=== PATIENT | male | born 1985 | race Caucasian/White ===

== ENCOUNTER → 2017-12-26 09:00 | Outpatient (CLI) | payer OTHER, SELFPAY | PROVIDERS: Family Provider Family Medicine; PCP Family Medicine | DX: Z23 Encounter for immunization (principal) | CPT/HCPCS: 90471; 90686 ==

== ENCOUNTER → 2018-05-07 11:05 | Outpatient (CLI) | payer OTHER, SELFPAY ==
[2018-05-07 11:54] LABS: Add Manual Diff / Slide Review NO; Basophils Absolute Auto 0 /uL (0-100); Basophils Percent Auto 0.4 % (0-2); Eosinophils Absolute Auto 300 /uL (0-450); Eosinophils Percent Auto 5.9 % (2-4); Hematocrit 47.8 % (41-53); Hemoglobin 16.2 g/dL (13.5-17.5); Lymphocytes Absolute Auto 2100 /uL (1100-4500); Lymphocytes Percent Auto 38.3 % (25-40); Mean Corpuscular HGB Conc 33.9 % (30-36); Mean Corpuscular Hemoglobin 31.3 PG (26-34); Mean Corpuscular Volume 92.1 fL (80-100); Monocytes Absolute Auto 400 /uL (0-900); Monocytes Percent Auto 8.2 % (3-14); Neutrophils Absolute Auto 2500 /uL (1500-7000); Neutrophils Percent Auto 47.2 % (50-75); Platelet Count 261 X10^3/uL (150-400); Red Blood Cell Count 5.19 X10^6/uL (4.5-5.9); Red Cell Distribution Width 12.8 % (11.6-14.8); White Blood Cell Count 5.4 X10^3/uL (4.5-11.0)
[2018-05-07 12:16] LABS: Alanine Aminotransferase 43 IU/L (21-72); Albumin 4.8 g/dL (3.5-5.0); Albumin Globulin Ratio 1.5 (1.0-2.8); Alkaline Phosphatase 61 U/L (38-126); Aspartate Aminotransferase 26 IU/L (17-59); BUN Creatinine Ratio 27.5 (6-22); Bilirubin Total 0.8 mg/dL (0.2-1.3); Blood Urea Nitrogen 22 mg/dL (9-20); Calcium 9.5 mg/dL (8.4-10.2); Carbon Dioxide 29 mmol/L (22-32); Chloride 105 mmol/L (98-107); Estimated Glomerular Filt Rate > 60.0 mL/min (>60); Globulin 3.2 g/dL (1.7-4.1); Glucose 95 mg/dL (70-100); HEMOLYSIS < 15 (0-50); Potassium 4.5 mmol/L (3.4-5.1); Sodium 143 mmol/L (137-145)
[2018-05-07 12:49] LABS: Thyroid Stimulating Hormone 1.15 uIU/mL (0.47-4.68)
== END ==
PROVIDERS: PCP Family Medicine; Visit Provider Family Medicine
DX: G44.209 Tension-type headache, unspecified, not intractable (principal)
CPT/HCPCS: 36415; 80053; 84443; 85025

== ENCOUNTER 2018-05-13 15:54 | Emergency (ER) | payer OTHER, SELFPAY ==
[2018-05-13 16:08] VITALS: BP 128/98; PULSE 85; RESP 18; TEMP 37.1; O2SAT 100; BMI 26.4
[2018-05-13 16:30] VITALS: BP 131/91; PULSE 76; RESP 16; O2SAT 97
--- NOTE | 2018-05-13 16:33 | ED.DIZZY ---
HPI - Dizziness <RADHA London - Last Filed: 05/13/18 21:57> General Chief Complaint: Dizziness Stated Complaint: SUDDEN VERTIGO FEELS LIKE FAINTING Time Seen by Provider: 05/13/18 16:26 Source: patient Mode of arrival: ambulatory Limitations: no limitations History of Present Illness HPI Narrative: 33-year-old male with history of migraines and is a former smoker here for complaint of dizziness that happened just prior to exam. He states that he was out at triage and felt immediate dizziness randomly. He describes the dizziness as lightheadedness. He denies it as a vertigo. He denies any headache at this current time. He denies any chest pain or shortness of breath. No fevers or chills. Does report having decreased amount of fluid intake over the past 24 hr. He denies any nausea or vomiting. No abdominal pain. He reports that at time exam his symptoms were improved. He denies any syncope. No stressors or relievers of his discomfort. He does report being on 2 new medications for migraines diltiazem and also indomethacin that he started few days ago. MD complaint: dizziness Related Data Home Medications Medication Instructions Recorded Confirmed acetaminophen [Tylenol Extra 500 mg PO Q6HP PRN #0 02/05/16 05/13/18 Strength] Nebulizer: Home Unit 1 ea MISCELLANEOUS DIRECTED 05/13/18 05/13/18 Tums 1 tab PO PRN PRN 05/13/18 05/13/18 albuterol sulfate 3 ml INH Q4HP PRN 05/13/18 05/13/18 albuterol sulfate [ProAir HFA] 2 puff INHALATION Q4H PRN 05/13/18 05/13/18 cetirizine 10 mg PO DAILY 05/13/18 05/13/18 Previous Rx's Medication Instructions Recorded nystatin 100,000 unit/gram topical See Rx Instructions TOPICAL 03/31/18 powder .COMPLEX #60 gram fluticasone 232 mcg-salmeterol 14 1 puff INHALATION BID #1 ea 04/23/18 mcg/actuation breath activated powdr diltiazem CD 120 mg 120 mg PO DAILY #30 cap 05/07/18 capsule,extended release 24 hr indomethacin 50 mg capsule 50 mg PO BID PRN #30 cap 05/07/18 nitrofurantoin monohyd/m-cryst 100 mg PO Q12H #14 cap 05/13/18 [Macrobid] Allergies Allergy/AdvReac Type Severity Reaction Status Date / Time No Known Drug Allergies Allergy Verified 05/13/18 16:13 Review of Systems <RADHA London - Last Filed: 05/13/18 21:57> Constitutional Denies chills, Denies fatigue, Denies fever(s), Denies lethargy and Denies weakness Eyes Denies change in vision, Denies eye discharge, Denies irritation and Denies loss of vision ENT Ears, Nose, Mouth, and Throat: Denies change in voice, Denies neck pain and Denies sore throat Cardiovascular Denies dyspnea and Denies dyspnea on exertion Comments: Dizziness Respiratory Denies cough, Denies dyspnea, Denies dyspnea on exertion and Denies wheezing Gastrointestinal Gastrointestinal: Denies abdominal pain, Denies change in bowel habits, Denies diarrhea, Denies nausea and Denies vomiting Genitourinary Denies hematuria, Denies flank pain, Denies urinary incontinence and Denies urinary urgency Musculoskeletal Denies neck pain Integumentary/Breasts Denies pruritus, Denies erythema, Denies rash and Denies wounds Neurologic Denies loss of vision and Denies weakness Endocrine Denies fatigue and Denies flushing Hematologic/Lymphatic Denies easy bruising Allergic/Immunologic Denies wheezing PFSH <RADHA London - Last Filed: 05/13/18 21:57> Medical History ADHD (Chronic ~2011) Anxiety (Chronic ~2009) Depression (Chronic ~2009) Hay fever with asthma (Chronic) Kidney stones (Chronic ~2011) Low testosterone (Chronic ~2011) PVCs (premature ventricular contractions) (Chronic ~2015) Pulmonary embolism (Chronic ~07/2011) Recurrent sinusitis (Chronic ~2014) Rhabdomyolysis (Chronic ~2006) Substance abuse (Chronic ~2009) Vertigo (Chronic ~2009) Acne (Resolved) Surgical History Anesthesia (Resolved) Fracture of radius and ulna (Resolved ~1997) History of third molar tooth extraction (~2001) Family History Brother Age: 29 Seizures Mental health problem Manic depression Father Age: 66 Pinched nerve Mother Age: 57 Hypertension Smoker Mental health problem Diabetes mellitus Alcoholic Sister Age: 33 Cancer Depression Grandmother No problems noted. Social History Smoking Status: Former smoker alcohol intake: former substance use type: does not use Social History Smoking Status: Former smoker alcohol intake: former substance use type: does not use Exam <RADHA London - Last Filed: 05/13/18 21:57> Initial Vital Signs Initial Vital Signs: Vital Signs Temperature 98.7 F 05/13/18 16:08 Pulse Rate 85 05/13/18 16:08 Respiratory Rate 18 05/13/18 16:08 Blood Pressure 128/98 H 05/13/18 16:08 Pulse Oximetry 100 05/13/18 16:08 Const General: cooperative and well developed Nutritional Appearance: well nourished Orientation: alert, awake, oriented x3 and not confused HENMT Mouth: oral mucosae normal and moist mucous membranes Eyes Conjunctivae: conjunctivae normal Sclera: sclerae normal Pupils: PERRL EOM: EOM intact bilaterally Chest Chest: normal inspection of the chest Resp Effort & Inspection: normal respiratory effort, able to speak in complete sentences, no respiratory distress and no use of accessory muscles Auscultation: clear to auscultation bilaterally, no rales, no rhonchi and no wheezes Cardio Rate: regular rate Rhythm: regular rhythm Heart Sounds: no click, no gallops, no murmurs and no rubs Pulses: normal peripheral pulses Skin General: no rashes or lesions noted, No jaundice and No petechiae Neuro General: alert, oriented x3, gait normal and no focal motor deficits Speech: speech normal <Bee Jackson DO - Last Filed: 05/14/18 02:44> Initial Vital Signs Initial Vital Signs: Vital Signs Temperature 98.7 F 05/13/18 16:08 Pulse Rate 85 05/13/18 16:08 Respiratory Rate 18 05/13/18 16:08 Blood Pressure 128/98 H 05/13/18 16:08 Pulse Oximetry 100 05/13/18 16:08 Course <RADHA London - Last Filed: 05/13/18 21:57> Orders Ordered: ED Orders 05/13/18 18:31 Creatine Kinase Stat Discontinued Medications Sodium Chloride (Normal Saline 0.9%) 1,000 mls @ 1,000 mls/hr IV BOLUS ONE Stop: 05/13/18 17:42 Last Infusion: 05/13/18 19:16 Dose: 0 mls/hr Admin: 05/13/18 17:26 Dose: 1,000 mls/hr Vital Signs - 8 hr 05/13/18 19:00 Pulse Rate 66 Respiratory Rate 16 Blood Pressure [Left Arm] 128/77 Pulse Oximetry 99 <Bee Jackson DO - Last Filed: 05/14/18 02:44> Orders Ordered: ED Orders 05/13/18 18:31 Creatine Kinase Stat Discontinued Medications Sodium Chloride (Normal Saline 0.9%) 1,000 mls @ 1,000 mls/hr IV BOLUS ONE Stop: 05/13/18 17:42 Last Infusion: 05/13/18 19:16 Dose: 0 mls/hr Admin: 05/13/18 17:26 Dose: 1,000 mls/hr Vital Signs - 8 hr 05/13/18 19:00 Pulse Rate 66 Respiratory Rate 16 Blood Pressure [Left Arm] 128/77 Pulse Oximetry 99 MDM - Dizziness <RADHA London - Last Filed: 05/13/18 21:57> Lab Data Result diagrams: 05/13/18 17:25 05/13/18 17:25 Lab Results 05/13/18 05/13/18 05/13/18 Range/Units 16:25 17:25 17:25 WBC 6.4 (4.5-11.0) X10^3/uL RBC 5.05 (4.5-5.9) X10^6/uL Hgb 15.9 (13.5-17.5) g/dL Hct 46.0 (41-53) % MCV 91.2 (80-100) fL MCH 31.4 (26-34) PG MCHC 34.5 (30-36) % RDW 13.0 (11.6-14.8) % Plt Count 275 (150-400) X10^3/uL Neut % (Auto) 60.7 (50-75) % Lymph % (Auto) 27.3 (25-40) % [place] % (Auto) 6.9 (3-14) % Eos % (Auto) 4.7 H (2-4) % Baso % (Auto) 0.4 (0-2) % Neut # (Auto) 3900 (8031-7164) /uL Lymph # (Auto) 1700 (2979-8248) /uL [facility] [place] # (Auto) 400 (0-900) /uL Eos # (Auto) 300 (0-450) /uL Baso # (Auto) 0 (0-100) /uL Sodium 140 (137-145) mmol/L Potassium 4.0 (3.4-5.1) mmol/L Chloride 104 (98-107) mmol/L Carbon Dioxide 27 (22-32) mmol/L BUN 22 H (9-20) mg/dL Creatinine 0.90 (0.66-1.25) mg/dL Estimated GFR > 60.0 (>60) mL/min BUN/Creatinine Ratio 24.4 H (6-22) Glucose 95 (70-100) mg/dL Calcium 9.4 (8.4-10.2) mg/dL Total Creatine Kinase (55-170) U/L Troponin I < 0.012 (0.01-0.034) ng/mL Urine RBC None seen (0-5/HPF) Urine WBC 5-10/hpf H (0-5/HPF) Urine Bacteria None seen (None) Urine Mucus 2+ H (Negative) Ur Culture Indicated? Specimen cultured 05/13/18 Range/Units 18:31 WBC (4.5-11.0) X10^3/uL RBC (4.5-5.9) X10^6/uL Hgb (13.5-17.5) g/dL Hct (41-53) % MCV (80-100) fL MCH (26-34) PG MCHC (30-36) % RDW (11.6-14.8) % Plt Count (150-400) X10^3/uL Neut % (Auto) (50-75) % Lymph % (Auto) (25-40) % [facility] % (Auto) (3-14) % Eos % (Auto) (2-4) % Baso % (Auto) (0-2) % Neut # (Auto) (2536-2813) /uL Lymph # (Auto) (3138-5618) /uL [facility] [place] # (Auto) (0-900) /uL Eos # (Auto) (0-450) /uL Baso # (Auto) (0-100) /uL Sodium (137-145) mmol/L Potassium (3.4-5.1) mmol/L Chloride (98-107) mmol/L Carbon Dioxide (22-32) mmol/L BUN (9-20) mg/dL Creatinine (0.66-1.25) mg/dL Estimated GFR (>60) mL/min BUN/Creatinine Ratio (6-22) Glucose (70-100) mg/dL Calcium (8.4-10.2) mg/dL Total Creatine Kinase 53 L (55-170) U/L Troponin I (0.01-0.034) ng/mL Urine RBC (0-5/HPF) Urine WBC (0-5/HPF) Urine Bacteria (None) Urine Mucus (Negative) Ur Culture Indicated? Point of Care Testing Glucose POC 106 Urine Dip Bedside Urine Glucose Negative Bedside Urine Bilirubin ++ 2 Bedside Urine Ketone +/- 5 Urine Specific [place] 1.030 Bedside Urine Occult Blood - Negative Bedside Urine pH 6.0 Bedside Urine Protein + 30 Bedside Urine Urobilinogen +/- 1mg Bedside Urine Nitrite - Negative Bedside Urine Leukocytes +/- 15 Esterase Imaging Data Chest x-ray: Radiologist's impression: [address] [place] [id number] XRay Report Signed Patient: Jesus Calix RMR#: [id number] : 1985Acct:[id number] Age/Sex: MDate of Service: 05/13/18 Loc: ED Accession Number: [id number] Procedure: XR chest 2V Ordering Provider: Janusz Jacobs PROCEDURE: XR CHEST 2V INDICATIONS: Dizziness/lightheadedness TECHNIQUE: 2 views of the chest were acquired. COMPARISON: [facility], , CHEST 2 VIEW, 10/22/2016, 13:03. FINDINGS: Surgical changes and devices: None. Lungs and pleura: Lungs are clear. No pleural effusions or pneumothorax. Mediastinum: Mediastinal contours are normal. Heart size is normal. Bones and chest wall: No suspicious bony abnormalities. Soft tissues appear unremarkable. IMPRESSION: No acute process. Dictated by: Smita Webb M.D. on 05/13/2018 at 16:02 Approved by: Smita Webb M.D. on 05/13/2018 at 16:02 CT scan - head: Radiologist's impression: [address] [address] [address] Scan Report Signed Patient: Jesus Calix RMR#: [id number] : 1985Acct:[id number] Age/Sex: 33 / MDate of Service: 05/13/18 Loc: ED Accession Number: [id number] Procedure: CT head/brain wo con Ordering Provider: Janusz Jacobs PROCEDURE: CT HEAD/BRAIN WO CON INDICATIONS: Dizziness/lightheadedness TECHNIQUE: Noncontrast 4.5 mm thick angled axial sections acquired from the foramen magnum to the vertex, with coronal and sagittal reformats. For radiation dose reduction, the following was used: automated exposure control, adjustment of mA and/or kV according to patient size. COMPARISON: [facility], CT, HEAD WITHOUT CONTRAST, 10/24/2014, 20:38. FINDINGS: Image quality: Excellent. CSF spaces: Basal cisterns are patent. No extra-axial fluid collections. Ventricles are normal in size and shape. Brain: No midline shift. No intracranial masses or hemorrhage. Girard-white matter interface is normal. Skull and face: Calvarium and visualized facial bones are intact, without suspicious lesions. Sinuses: Visualized sinuses and mastoids are clear. IMPRESSION: No acute intracranial abnormality. Dictated by: Smita Webb M.D. on 05/13/2018 at 16:01 Approved by: Smita Webb M.D. on 05/13/2018 at 16:01 ECG Data Interpretation: EKG shows normal sinus rhythm with no ST elevation or depression. No ectopy. Ventricular rate of 80. Pr interval 142. QRS duration of 100. QTC of 406. MDM Narrative Medical decision making narrative: Chest x-ray was obtained was negative for any acute findings. EKG shows sinus rhythm with no ST elevation or depression. No ectopy. CT of the head was obtained was negative for any acute findings. CBC and Chem panel were obtained were unremarkable. Cardiac enzymes were negative. Patient was given fluids in the emergency room which helped with his dizziness. Differential between not enough fluid intake and new medications for migraine prophylaxis causing his dizziness. Will have patient hold on his indomethacin and diltiazem prescriptions until follow up with primary care provider. Urinalysis indicated elevated white count and also positive for leuko esterase. He is treated for urinary tract infection with Macrobid. Urine culture is pending. Patient instructed to drink plenty of fluids. For any worsening symptoms return to the emergency room. <Bee Renetta, DO - Last Filed: 05/14/18 02:44> Lab Data Lab Results 05/13/18 05/13/18 05/13/18 Range/Units 16:25 17:25 17:25 WBC 6.4 (4.5-11.0) X10^3/uL RBC 5.05 (4.5-5.9) X10^6/uL Hgb 15.9 (13.5-17.5) g/dL Hct 46.0 (41-53) % MCV 91.2 (80-100) fL MCH 31.4 (26-34) PG MCHC 34.5 (30-36) % RDW 13.0 (11.6-14.8) % Plt Count 275 (150-400) X10^3/uL Neut % (Auto) 60.7 (50-75) % Lymph % (Auto) 27.3 (25-40) % [place] % (Auto) 6.9 (3-14) % Eos % (Auto) 4.7 H (2-4) % Baso % (Auto) 0.4 (0-2) % Neut # (Auto) 3900 (0632-8454) /uL Lymph # (Auto) 1700 (8622-9967) /uL [facility] # (Auto) 400 (0-900) /uL Eos # (Auto) 300 (0-450) /uL Baso # (Auto) 0 (0-100) /uL Sodium 140 (137-145) mmol/L Potassium 4.0 (3.4-5.1) mmol/L Chloride 104 (98-107) mmol/L Carbon Dioxide 27 (22-32) mmol/L BUN 22 H (9-20) mg/dL Creatinine 0.90 (0.66-1.25) mg/dL Estimated GFR > 60.0 (>60) mL/min BUN/Creatinine Ratio 24.4 H (6-22) Glucose 95 (70-100) mg/dL Calcium 9.4 (8.4-10.2) mg/dL Total Creatine Kinase (55-170) U/L Troponin I < 0.012 (0.01-0.034) ng/mL Urine RBC None seen (0-5/HPF) Urine WBC 5-10/hpf H (0-5/HPF) Urine Bacteria None seen (None) Urine Mucus 2+ H (Negative) Ur Culture Indicated? Specimen cultured 05/13/18 Range/Units 18:31 WBC (4.5-11.0) X10^3/uL RBC (4.5-5.9) X10^6/uL Hgb (13.5-17.5) g/dL Hct (41-53) % MCV (80-100) fL MCH (26-34) PG MCHC (30-36) % RDW (11.6-14.8) % Plt Count (150-400) X10^3/uL Neut % (Auto) (50-75) % Lymph % (Auto) (25-40) % [place] % (Auto) (3-14) % Eos % (Auto) (2-4) % Baso % (Auto) (0-2) % Neut # (Auto) (8698-0382) /uL Lymph # (Auto) (1242-7335) /uL [facility] [place] # (Auto) (0-900) /uL Eos # (Auto) (0-450) /uL Baso # (Auto) (0-100) /uL Sodium (137-145) mmol/L Potassium (3.4-5.1) mmol/L Chloride (98-107) mmol/L Carbon Dioxide (22-32) mmol/L BUN (9-20) mg/dL Creatinine (0.66-1.25) mg/dL Estimated GFR (>60) mL/min BUN/Creatinine Ratio (6-22) Glucose (70-100) mg/dL Calcium (8.4-10.2) mg/dL Total Creatine Kinase 53 L (55-170) U/L Troponin I (0.01-0.034) ng/mL Urine RBC (0-5/HPF) Urine WBC (0-5/HPF) Urine Bacteria (None) Urine Mucus (Negative) Ur Culture Indicated? Point of Care Testing Glucose POC 106 Urine Dip Bedside Urine Glucose Negative Bedside Urine Bilirubin ++ 2 Bedside Urine Ketone +/- 5 Urine Specific [place] 1.030 Bedside Urine Occult Blood - Negative Bedside Urine pH 6.0 Bedside Urine Protein + 30 Bedside Urine Urobilinogen +/- 1mg Bedside Urine Nitrite - Negative Bedside Urine Leukocytes +/- 15 Esterase ECG Data Attestation: I personally reviewed and interpreted this ECG as follows: Prior ECG tracings: available for review Interpretation: Normal sinus rhythm rate 80 [place] interval [address] changes no T-wave inversions normal intervals similar to previous EKG Discharge Plan Departure Patient Disposition: Home Clinical Impression: Dizziness Urinary tract infection Qualifiers: Urinary tract infection type: acute cystitis Hematuria presence: without hematuria Qualified Code(s): N30.00 - Acute cystitis without hematuria Discharge Date/Time: 05/13/18 19:24 Interventions: ED Discharge Assessment Last Done: 05/13/18 19:23 Instructions: DI for Dizziness-Nonvertigo Activity Restrictions/Additional Instructions: CT of the head and chest x-ray were obtained were unremarkable. EKG was unremarkable. Laboratory results were unremarkable. With exception of urinalysis which indicates urinary tract infection. Differential of the dizziness between new medications and not enough fluid intake and new medications.. Anterior drinking plenty of fluids. Your prescribed an antibiotic called Macrobid use as directed. Follow up with primary care provider next few days for re-evaluation. For any worsening symptoms. Hold on a indomethacin and diltiazem until follow up with primary care provider. For any worsening symptoms return to the emergency room. Prescriptions: New nitrofurantoin monohyd/m-cryst [Macrobid] 100 mg capsule 100 mg PO Q12H Qty: 14 RF: 0 No Action acetaminophen [Tylenol Extra Strength] 500 MG tablet 500 mg PO Q6HP PRN (Reason: pain, headache, fever) Qty: 0 RF: 0 nystatin [Nystop] 100,000 unit/gram powder See Rx Instructions Topical .COMPLEX Qty: 60 RF: 3 fluticasone-salmeterol [AirDuo RespiClick] 232-14 mcg/actuation aerosol powdr breath activated 1 puff INHALATION BID Qty: 1 RF: 5 diltiazem HCl [Cardizem CD] 120 mg capsule,extended release 24hr 120 mg PO DAILY Qty: 30 RF: 3 indomethacin 50 mg capsule 50 mg PO BID PRN (Reason: headache) Qty: 30 RF: 0 ProAir HFA 90 mcg/actuation HFA aerosol inhaler 2 puff Inhalation Q4H PRN (Reason: Shortness Of Breath) RF: 0 albuterol sulfate 2.5 MG/3 ML solution for nebulization 3 ml INH Q4HP PRN (Reason: Shortness Of Breath) RF: 0 cetirizine 10 mg Tablet 10 mg PO DAILY RF: 0 Tums 1 tab PO PRN PRN (Reason: Indigestion) RF: 0 Nebulizer: Home Unit 1 ea miscellaneous DIRECTED RF: 0 Referrals: Gui Bustos MD [Primary Care Provider] - <Bee Jackson DO - Last Filed: 05/14/18 02:44> Cosign ED Attending Cosignature Attestation: I was immediately available in the department for consultation. Documentation has been reviewed. I agree with assessment and plan.
[2018-05-13 16:43] LABS: Bacteria Urine None Seen; RBC Urine None Seen (0-5/HPF)
--- NOTE | 2018-05-13 16:44 | DI.RAD.S_ITS ---
PROCEDURE: XR CHEST 2V INDICATIONS: Dizziness/lightheadedness TECHNIQUE: 2 views of the chest were acquired. COMPARISON: [facility], , CHEST 2 VIEW, 10/22/2016, 13:03. FINDINGS: Surgical changes and devices: None. Lungs and pleura: Lungs are clear. No pleural effusions or pneumothorax. Mediastinum: Mediastinal contours are normal. Heart size is normal. Bones and chest wall: No suspicious bony abnormalities. Soft tissues appear unremarkable. IMPRESSION: No acute process. Dictated by: Smita Webb M.D. on 05/13/2018 at 16:02 Approved by: Smita Webb M.D. on 05/13/2018 at 16:02
--- NOTE | 2018-05-13 16:44 | DI.CT.S_ITS ---
PROCEDURE: CT HEAD/BRAIN WO CON INDICATIONS: Dizziness/lightheadedness TECHNIQUE: Noncontrast 4.5 mm thick angled axial sections acquired from the foramen magnum to the vertex, with coronal and sagittal reformats. For radiation dose reduction, the following was used: automated exposure control, adjustment of mA and/or kV according to patient size. COMPARISON: [facility], CT, HEAD WITHOUT CONTRAST, 10/24/2014, 20:38. FINDINGS: Image quality: Excellent. CSF spaces: Basal cisterns are patent. No extra-axial fluid collections. Ventricles are normal in size and shape. Brain: No midline shift. No intracranial masses or hemorrhage. Girard-white matter interface is normal. Skull and face: Calvarium and visualized facial bones are intact, without suspicious lesions. Sinuses: Visualized sinuses and mastoids are clear. IMPRESSION: No acute intracranial abnormality. Dictated by: Smita Webb M.D. on 05/13/2018 at 16:01 Approved by: Smita Webb M.D. on 05/13/2018 at 16:01
--- NOTE | 2018-05-13 16:45 | PC.NURSE ---
dizziness, balance issues, new onset severe migraines with new medication started yesterday. Recent diagnosis of chiari malformation.
[2018-05-13 16:50] LABS: Culture Indicated Urine Specimen Cultured; Mucus Urine 2+ (Negative); WBC Urine 5-10/HPF (0-5/HPF)
[2018-05-13] MEDS: SODIUM CHLORIDE 0.9% 1,000 ML 1000 ML IV (17:26)
[2018-05-13 17:30] VITALS: BP 126/77; PULSE 68; RESP 11; O2SAT 99
[2018-05-13 17:34] LABS: Add Manual Diff / Slide Review NO; Basophils Absolute Auto 0 /uL (0-100); Basophils Percent Auto 0.4 % (0-2); Eosinophils Absolute Auto 300 /uL (0-450); Eosinophils Percent Auto 4.7 % (2-4); Hemoglobin 15.9 g/dL (13.5-17.5); Lymphocytes Absolute Auto 1700 /uL (1100-4500); Lymphocytes Percent Auto 27.3 % (25-40); Mean Corpuscular HGB Conc 34.5 % (30-36); Mean Corpuscular Hemoglobin 31.4 PG (26-34); Mean Corpuscular Volume 91.2 fL (80-100); Monocytes Absolute Auto 400 /uL (0-900); Monocytes Percent Auto 6.9 % (3-14); Neutrophils Absolute Auto 3900 /uL (1500-7000); Neutrophils Percent Auto 60.7 % (50-75); Platelet Count 275 X10^3/uL (150-400); Red Blood Cell Count 5.05 X10^6/uL (4.5-5.9); White Blood Cell Count 6.4 X10^3/uL (4.5-11.0)
[2018-05-13 17:48] LABS: BUN Creatinine Ratio 24.4 (6-22); Blood Urea Nitrogen 22 mg/dL (9-20); Calcium 9.4 mg/dL (8.4-10.2); Carbon Dioxide 27 mmol/L (22-32); Chloride 104 mmol/L (98-107); Estimated Glomerular Filt Rate > 60.0 mL/min (>60); Glucose 95 mg/dL (70-100); HEMOLYSIS < 15 (0-50); Sodium 140 mmol/L (137-145)
[2018-05-13 18:00] VITALS: BP 127/76; PULSE 69; RESP 15; O2SAT 100
[2018-05-13 18:04] LABS: Troponin I < 0.012 ng/mL (0.01-0.034)
--- NOTE | 2018-05-13 18:30 | ED_ITS ---
HPI - Dizziness <RADHA London - Last Filed: 05/13/18 21:57> General Chief Complaint: Dizziness Stated Complaint: SUDDEN VERTIGO FEELS LIKE FAINTING Time Seen by Provider: 05/13/18 16:26 Source: patient Mode of arrival: ambulatory Limitations: no limitations History of Present Illness HPI Narrative: 33-year-old male with history of migraines and is a former smoker here for complaint of dizziness that happened just prior to exam. He states that he was out at triage and felt immediate dizziness randomly. He describes the dizziness as lightheadedness. He denies it as a vertigo. He denies any headache at this current time. He denies any chest pain or shortness of breath. No fevers or chills. Does report having decreased amount of fluid intake over the past 24 hr. He denies any nausea or vomiting. No abdominal pain. He reports that at time exam his symptoms were improved. He denies any syncope. No stressors or relievers of his discomfort. He does report being on 2 new medications for migraines diltiazem and also indomethacin that he started few days ago. MD complaint: dizziness Related Data Home Medications Medication Instructions Recorded Confirmed acetaminophen [Tylenol Extra 500 mg PO Q6HP PRN #0 02/05/16 05/13/18 Strength] Nebulizer: Home Unit 1 ea MISCELLANEOUS DIRECTED 05/13/18 05/13/18 Tums 1 tab PO PRN PRN 05/13/18 05/13/18 albuterol sulfate 3 ml INH Q4HP PRN 05/13/18 05/13/18 albuterol sulfate [ProAir HFA] 2 puff INHALATION Q4H PRN 05/13/18 05/13/18 cetirizine 10 mg PO DAILY 05/13/18 05/13/18 Previous Rx's Medication Instructions Recorded nystatin 100,000 unit/gram topical See Rx Instructions TOPICAL 03/31/18 powder .COMPLEX #60 gram fluticasone 232 mcg-salmeterol 14 1 puff INHALATION BID #1 ea 04/23/18 mcg/actuation breath activated powdr diltiazem CD 120 mg 120 mg PO DAILY #30 cap 05/07/18 capsule,extended release 24 hr indomethacin 50 mg capsule 50 mg PO BID PRN #30 cap 05/07/18 nitrofurantoin monohyd/m-cryst 100 mg PO Q12H #14 cap 05/13/18 [Macrobid] Allergies Allergy/AdvReac Type Severity Reaction Status Date / Time No Known Drug Allergies Allergy Verified 05/13/18 16:13 Review of Systems <RADHA London - Last Filed: 05/13/18 21:57> Constitutional Denies chills, Denies fatigue, Denies fever(s), Denies lethargy and Denies weakness Eyes Denies change in vision, Denies eye discharge, Denies irritation and Denies loss of vision ENT Ears, Nose, Mouth, and Throat: Denies change in voice, Denies neck pain and Denies sore throat Cardiovascular Denies dyspnea and Denies dyspnea on exertion Comments: Dizziness Respiratory Denies cough, Denies dyspnea, Denies dyspnea on exertion and Denies wheezing Gastrointestinal Gastrointestinal: Denies abdominal pain, Denies change in bowel habits, Denies diarrhea, Denies nausea and Denies vomiting Genitourinary Denies hematuria, Denies flank pain, Denies urinary incontinence and Denies urinary urgency Musculoskeletal Denies neck pain Integumentary/Breasts Denies pruritus, Denies erythema, Denies rash and Denies wounds Neurologic Denies loss of vision and Denies weakness Endocrine Denies fatigue and Denies flushing Hematologic/Lymphatic Denies easy bruising Allergic/Immunologic Denies wheezing PFSH <RADHA London - Last Filed: 05/13/18 21:57> Medical History ADHD (Chronic ~2011) Anxiety (Chronic ~2009) Depression (Chronic ~2009) Hay fever with asthma (Chronic) Kidney stones (Chronic ~2011) Low testosterone (Chronic ~2011) PVCs (premature ventricular contractions) (Chronic ~2015) Pulmonary embolism (Chronic ~07/2011) Recurrent sinusitis (Chronic ~2014) Rhabdomyolysis (Chronic ~2006) Substance abuse (Chronic ~2009) Vertigo (Chronic ~2009) Acne (Resolved) Surgical History Anesthesia (Resolved) Fracture of radius and ulna (Resolved ~1997) History of third molar tooth extraction (~2001) Family History Brother Age: 29 Seizures Mental health problem Manic depression Father Age: 66 Pinched nerve Mother Age: 57 Hypertension Smoker Mental health problem Diabetes mellitus Alcoholic Sister Age: 33 Cancer Depression Grandmother No problems noted. Social History Smoking Status: Former smoker alcohol intake: former substance use type: does not use Social History Smoking Status: Former smoker alcohol intake: former substance use type: does not use Exam <RADHA London - Last Filed: 05/13/18 21:57> Initial Vital Signs Initial Vital Signs: Vital Signs Temperature 98.7 F 05/13/18 16:08 Pulse Rate 85 05/13/18 16:08 Respiratory Rate 18 05/13/18 16:08 Blood Pressure 128/98 H 05/13/18 16:08 Pulse Oximetry 100 05/13/18 16:08 Const General: cooperative and well developed Nutritional Appearance: well nourished Orientation: alert, awake, oriented x3 and not confused HENMT Mouth: oral mucosae normal and moist mucous membranes Eyes Conjunctivae: conjunctivae normal Sclera: sclerae normal Pupils: PERRL EOM: EOM intact bilaterally Chest Chest: normal inspection of the chest Resp Effort & Inspection: normal respiratory effort, able to speak in complete s entences, no respiratory distress and no use of accessory muscles Auscultation: clear to auscultation bilaterally, no rales, no rhonchi and no wheezes Cardio Rate: regular rate Rhythm: regular rhythm Heart Sounds: no click, no gallops, no murmurs and no rubs Pulses: normal peripheral pulses Skin General: no rashes or lesions noted, No jaundice and No petechiae Neuro General: alert, oriented x3, gait normal and no focal motor deficits Speech: speech normal <Bee Jackson DO - Last Filed: 05/14/18 02:44> Initial Vital Signs Initial Vital Signs: Vital Signs Temperature 98.7 F 05/13/18 16:08 Pulse Rate 85 05/13/18 16:08 Respiratory Rate 18 05/13/18 16:08 Blood Pressure 128/98 H 05/13/18 16:08 Pulse Oximetry 100 05/13/18 16:08 Course <RADHA London - Last Filed: 05/13/18 21:57> Orders Ordered: ED Orders 02/12/19 18:31 Creatine Kinase Stat Discontinued Medications Sodium Chloride (Normal Saline 0.9%) 1,000 mls @ 1,000 mls/hr IV BOLUS ONE Stop: 05/13/18 17:42 Last Infusion: 05/13/18 19:16 Dose: 0 mls/hr Admin: 05/13/18 17:26 Dose: 1,000 mls/hr Vital Signs - 8 hr 05/13/18 19:00 Pulse Rate 66 Respiratory Rate 16 Blood Pressure [Left Arm] 128/77 Pulse Oximetry 99 <Bee Jackson DO - Last Filed: 05/14/18 02:44> Orders Ordered: ED Orders 05/13/18 18:31 Creatine Kinase Stat Discontinued Medications Sodium Chloride (Normal Saline 0.9%) 1,000 mls @ 1,000 mls/hr IV BOLUS ONE Stop: 05/13/18 17:42 Last Infusion: 05/13/18 19:16 Dose: 0 mls/hr Admin: 05/13/18 17:26 Dose: 1,000 mls/hr Vital Signs - 8 hr 05/13/18 19:00 Pulse Rate 66 Respiratory Rate 16 Blood Pressure [Left Arm] 128/77 Pulse Oximetry 99 MDM - Dizziness <RADHA London - Last Filed: 05/13/18 21:57> Lab Data Result diagrams: 05/13/18 17:25 05/13/18 17:25 Lab Results 05/13/18 05/13/18 05/13/18 Range/Units 16:25 17:25 17:25 WBC 6.4 (4.5-11.0) X10^3/uL RBC 5.05 (4.5-5.9) X10^6/uL Hgb 15.9 (13.5-17.5) g/dL Hct 46.0 (41-53) % MCV 91.2 (80-100) fL MCH 31.4 (26-34) PG MCHC 34.5 (30-36) % RDW 13.0 (11.6-14.8) % Plt Count 275 (150-400) X10^3/uL Neut % (Auto) 60.7 (50-75) % Lymph % (Auto) 27.3 (25-40) % [place] % (Auto) 6.9 (3-14) % Eos % (Auto) 4.7 H (2-4) % Baso % (Auto) 0.4 (0-2) % Neut # (Auto) 3900 (6811-9785) /uL Lymph # (Auto) 1700 (9761-5453) /uL [place] # (Auto) 400 (0-900) /uL Eos # (Auto) 300 (0-450) /uL Baso # (Auto) 0 (0-100) /uL Sodium 140 (137-145) mmol/L Potassium 4.0 (3.4-5.1) mmol/L Chloride 104 (98-107) mmol/L Carbon Dioxide 27 (22-32) mmol/L BUN 22 H (9-20) mg/dL Creatinine 0.90 (0.66-1.25) mg/dL Estimated GFR > 60.0 (>60) mL/min BUN/Creatinine Ratio 24.4 H (6-22) Glucose 95 (70-100) mg/dL Calcium 9.4 (8.4-10.2) mg/dL Total Creatine Kinase (55-170) U/L Troponin I < 0.012 (0.01-0.034) ng/mL Urine RBC None seen (0-5/HPF) Urine WBC 5-10/hpf H (0-5/HPF) Urine Bacteria None seen (None) Urine Mucus 2+ H (Negative) Ur Culture Indicated? Specimen cultured 05/13/18 Range/Units 18:31 WBC (4.5-11.0) X10^3/uL RBC (4.5-5.9) X10^6/uL Hgb (13.5-17.5) g/dL Hct (41-53) % MCV (80-100) fL MCH (26-34) PG MCHC (30-36) % RDW (11.6-14.8) % Plt Count (150-400) X10^3/uL Neut % (Auto) (50-75) % Lymph % (Auto) (25-40) % [place] % (Auto) (3-14) % Eos % (Auto) (2-4) % Baso % (Auto) (0-2) % Neut # (Auto) (1781-8406) /uL Lymph # (Auto) (6028-2393) /uL [place] # (Auto) (0-900) /uL Eos # (Auto) (0-450) /uL Baso # (Auto) (0-100) /uL Sodium (137-145) mmol/L Potassium (3.4-5.1) mmol/L Chloride (98-107) mmol/L Carbon Dioxide (22-32) mmol/L BUN (9-20) mg/dL Creatinine (0.66-1.25) mg/dL Estimated GFR (>60) mL/min BUN/Creatinine Ratio (6-22) Glucose (70-100) mg/dL Calcium (8.4-10.2) mg/dL Total Creatine Kinase 53 L (55-170) U/L Troponin I (0.01-0.034) ng/mL Urine RBC (0-5/HPF) Urine WBC (0-5/HPF) Urine Bacteria (None) Urine Mucus (Negative) Ur Culture Indicated? Point of Care Testing Glucose POC 106 Urine Dip Bedside Urine Glucose Negative Bedside Urine Bilirubin ++ 2 Bedside Urine Ketone +/- 5 Urine Specific [place] 1.030 Bedside Urine Occult Blood - Negative Bedside Urine pH 6.0 Bedside Urine Protein + 30 Bedside Urine Urobilinogen +/- 1mg Bedside Urine Nitrite - Negative Bedside Urine Leukocytes +/- 15 Esterase Imaging Data Chest x-ray: Radiologist's impression: [address] [place] [address] XRay Report Signed Patient: Jesus Calix RMR#: [id number] : 1985Acct:[id number] Age/Sex: MDate of Service: 05/13/18 Loc: ED Accession Number: [id number] Procedure: XR chest 2V Ordering Provider: Janusz Jacobs PROCEDURE: XR CHEST 2V INDICATIONS: Dizziness/lightheadedness TECHNIQUE: 2 views of the chest were acquired. COMPARISON: [facility], , CHEST 2 VIEW, 10/22/2016, 13:03. FINDINGS: Surgical changes and devices: None. Lungs and pleura: Lungs are clear. No pleural effusions or pneumothorax. Mediastinum: Mediastinal contours are normal. Heart size is normal. Bones and chest wall: No suspicious bony abnormalities. Soft tissues appear unremarkable. IMPRESSION: No acute process. Dictated by: Smita Webb M.D. on 05/13/2018 at 16:02 Approved by: Smita Webb M.D. on 05/13/2018 at 16:02 CT scan - head: Radiologist's impression: [address] [address] [address] Scan Report Signed Patient: Jesus Calix RMR#: [id number] : 1985Acct:[id number] Age/Sex: 33 / MDate of Service: 05/13/18 Loc: ED Accession Number: [id number] Procedure: CT head/brain wo con Ordering Provider: Janusz Jacobs PROCEDURE: CT HEAD/BRAIN WO CON INDICATIONS: Dizziness/lightheadedness TECHNIQUE: Noncontrast 4.5 mm thick angled axial sections acquired from the foramen magnum to the vertex, with coronal and sagittal reformats. For radiation dose reduction, the following was used: automated exposure control, adjustment of mA and/or kV according to patient size. COMPARISON: [facility], CT, HEAD WITHOUT CONTRAST, 10/24/2014, 20:38. FINDINGS: Image quality: Excellent. CSF spaces: Basal cisterns are patent. No extra-axial fluid collections. Ventricles are normal in size and shape. Brain: No midline shift. No intracranial masses or hemorrhage. Girard-white matter interface is normal. Skull and face: Calvarium and visualized facial bones are intact, without suspicious lesions. Sinuses: Visualized sinuses and mastoids are clear. IMPRESSION: No acute intracranial abnormality. Dictated by: Smita Webb M.D. on 05/13/2018 at 16:01 Approved by: Smita Webb M.D. on 05/13/2018 at 16:01 ECG Data Interpretation: EKG shows normal sinus rhythm with no ST elevation or depression. No ectopy. Ventricular rate of 80. Pr interval 142. QRS duration of 100. QTC of 406. MDM Narrative Medical decision making narrative: Chest x-ray was obtained was negative for any acute findings. EKG shows sinus rhythm with no ST elevation or depression. No ectopy. CT of the head was obtained was negative for any acute findings. CBC and Chem panel were obtained were unremarkable. Cardiac enzymes were negative. Patient was given fluids in the emergency room which helped with his dizziness. Differential between not enough fluid intake and new medications for migraine prophylaxis causing his dizziness. Will have patient hold on his indomethacin and diltiazem prescriptions until follow up with primary care provider. Urinalysis indicated elevated white count and also positive for leuko esterase. He is treated for urinary tract infection with Macrobid. Urine culture is pending. Patient instructed to drink plenty of fluids. For any worsening symptoms return to the emergency room. <Bee Jackson, DO - Last Filed: 05/14/18 02:44> Lab Data Lab Results 05/13/18 05/13/18 05/13/18 Range/Units 16:25 17:25 17:25 WBC 6.4 (4.5-11.0) X10^3/uL RBC 5.05 (4.5-5.9) X10^6/uL Hgb 15.9 (13.5-17.5) g/dL Hct 46.0 (41-53) % MCV 91.2 (80-100) fL MCH 31.4 (26-34) PG MCHC 34.5 (30-36) % RDW 13.0 (11.6-14.8) % Plt Count 275 (150-400) X10^3/uL Neut % (Auto) 60.7 (50-75) % Lymph % (Auto) 27.3 (25-40) % [place] % (Auto) 6.9 (3-14) % Eos % (Auto) 4.7 H (2-4) % Baso % (Auto) 0.4 (0-2) % Neut # (Auto) 3900 (0088-4376) /uL Lymph # (Auto) 1700 (5357-6082) /uL [place] # (Auto) 400 (0-900) /uL Eos # (Auto) 300 (0-450) /uL Baso # (Auto) 0 (0-100) /uL Sodium 140 (137-145) mmol/L Potassium 4.0 (3.4-5.1) mmol/L Chloride 104 (98-107) mmol/L Carbon Dioxide 27 (22-32) mmol/L BUN 22 H (9-20) mg/dL Creatinine 0.90 (0.66-1.25) mg/dL Estimated GFR > 60.0 (>60) mL/min BUN/Creatinine Ratio 24.4 H (6-22) Glucose 95 (70-100) mg/dL Calcium 9.4 (8.4-10.2) mg/dL Total Creatine Kinase (55-170) U/L Troponin I < 0.012 (0.01-0.034) ng/mL Urine RBC None seen (0-5/HPF) Urine WBC 5-10/hpf H (0-5/HPF) Urine Bacteria None seen (None) Urine Mucus 2+ H (Negative) Ur Culture Indicated? Specimen cultured 05/13/18 Range/Units 18:31 WBC (4.5-11.0) X10^3/uL RBC (4.5-5.9) X10^6/uL Hgb (13.5-17.5) g/dL Hct (41-53) % MCV (80-100) fL MCH (26-34) PG MCHC (30-36) % RDW (11.6-14.8) % Plt Count (150-400) X10^3/uL Neut % (Auto) (50-75) % Lymph % (Auto) (25-40) % [place] % (Auto) (3-14) % Eos % (Auto) (2-4) % Baso % (Auto) (0-2) % Neut # (Auto) (5435-0897) /uL Lymph # (Auto) (6234-5757) /uL [place] # (Auto) (0-900) /uL Eos # (Auto) (0-450) /uL Baso # (Auto) (0-100) /uL Sodium (137-145) mmol/L Potassium (3.4-5.1) mmol/L Chloride (98-107) mmol/L Carbon Dioxide (22-32) mmol/L BUN (9-20) mg/dL Creatinine (0.66-1.25) mg/dL Estimated GFR (>60) mL/min BUN/Creatinine Ratio (6-22) Glucose (70-100) mg/dL Calcium (8.4-10.2) mg/dL Total Creatine Kinase 53 L (55-170) U/L Troponin I (0.01-0.034) ng/mL Urine RBC (0-5/HPF) Urine WBC (0-5/HPF) Urine Bacteria (None) Urine Mucus (Negative) Ur Culture Indicated? Point of Care Testing Glucose POC 106 Urine Dip Bedside Urine Glucose Negative Bedside Urine Bilirubin ++ 2 Bedside Urine Ketone +/- 5 Urine Specific [place] 1.030 Bedside Urine Occult Blood - Negative Bedside Urine pH 6.0 Bedside Urine Protein + 30 Bedside Urine Urobilinogen +/- 1mg Bedside Urine Nitrite - Negative Bedside Urine Leukocytes +/- 15 Esterase ECG Data Attestation: I personally reviewed and interpreted this ECG as follows: Prior ECG tracings: available for review Interpretation: Normal sinus rhythm rate 80 [place] interval [address] changes no T-wave inversions normal intervals similar to previous EKG Discharge Plan Departure Patient Disposition: Home Clinical Impression: Dizziness Urinary tract infection Qualifiers: Urinary tract infection type: acute cystitis Hematuria presence: without hematuria Qualified Code(s): N30.00 - Acute cystitis without hematuria Discharge Date/Time: 05/13/18 19:24 Interventions: ED Discharge Assessment Last Done: 05/13/18 19:23 Instructions: DI for Dizziness-Nonvertigo Activity Restrictions/Additional Instructions: CT of the head and chest x-ray were obtained were unremarkable. EKG was unremarkable. Laboratory results were unremarkable. With exception of urinalysis which indicates urinary tract infection. Differential of the dizziness between new medications and not enough fluid intake and new medications.. Anterior drinking plenty of fluids. Your prescribed an antibiotic called Macrobid use as directed. Follow up with primary care provider next few days for re-evaluation. For any worsening symptoms. Hold on a indomethacin and diltiazem until follow up with primary care provider. For any worsening symptoms return to the emergency room. Prescriptions: New nitrofurantoin monohyd/m-cryst [Macrobid] 100 mg capsule 100 mg PO Q12H Qty: 14 RF: 0 No Action acetaminophen [Tylenol Extra Strength] 500 MG tablet 500 mg PO Q6HP PRN (Reason: pain, headache, fever) Qty: 0 RF: 0 nystatin [Nystop] 100,000 unit/gram powder See Rx Instructions Topical .COMPLEX Qty: 60 RF: 3 fluticasone-salmeterol [AirDuo RespiClick] 232-14 mcg/actuation aerosol powdr breath activated 1 puff INHALATION BID Qty: 1 RF: 5 diltiazem HCl [Cardizem CD] 120 mg capsule,extended release 24hr 120 mg PO DAILY Qty: 30 RF: 3 indomethacin 50 mg capsule 50 mg PO BID PRN (Reason: headache) Qty: 30 RF: 0 ProAir HFA 90 mcg/actuation HFA aerosol inhaler 2 puff Inhalation Q4H PRN (Reason: Shortness Of Breath) RF: 0 albuterol sulfate 2.5 MG/3 ML solution for nebulization 3 ml INH Q4HP PRN (Reason: Shortness Of Breath) RF: 0 cetirizine 10 mg Tablet 10 mg PO DAILY RF: 0 Tums 1 tab PO PRN PRN (Reason: Indigestion) RF: 0 Nebulizer: Home Unit 1 ea miscellaneous DIRECTED RF: 0 Referrals: Gui Bustos MD [Primary Care Provider] - <Bee Jackson DO - Last Filed: 05/14/18 02:44> Cosign ED Attending Cosignature Attestation: I was immediately available in the department for consultation. Documentation has been reviewed. I agree with assessment and plan.
[2018-05-13 18:43] LABS: Creatine Kinase 53 U/L (55-170)
[2018-05-13 19:00] VITALS: BP 128/77; PULSE 66; RESP 16; O2SAT 99
== END 2018-05-13 19:24 | disposition home or self-care (01) ==
PROVIDERS: Emergency Provider Nurse Practitioner Family; PCP Family Medicine
DX: N30.00 Acute cystitis without hematuria (principal); R42 Dizziness and giddiness
CPT/HCPCS: 36591; 70450; 71046; 80048; 81003; 81015; 82550; 82962; 84484; 85025; 87086; 93005; 96360; 96361; 99283; 99285

== ENCOUNTER → 2018-05-15 14:44 | Outpatient (CLI) | payer OTHER, SELFPAY ==
--- NOTE | 2018-05-15 14:46 | DI.MRI.S_ITS ---
PROCEDURE: MR HEAD/BRAIN WO CON INDICATIONS: chiari 1 malformation worsening headaches TECHNIQUE: Noncontrast axial T1 spin echo, axial T2 fast spin echo, sagittal and axial FLAIR, coronal T2 fast spin echo, axial gradient echo, axial diffusion and ADC through the brain. COMPARISON: [facility], MR, BRAIN WITHOUT CONTRAST, 10/30/2010, 11:11. [facility], MR, BRAIN W&WO CONTRAST, 08/14/2016, 17:54. FINDINGS: Image quality: Excellent. CSF Spaces: Basal cisterns are patent. No extra-axial fluid collections. Ventricles are normal in size and shape. Brain: No intracranial masses or hemorrhage. Girard/white matter interface is normal. Brainstem appears normal. Diffusion-weighted images demonstrate no acute ischemic insult. The right cerebellar tonsil projects approximately 1.6 cm inferior to the foramen magnum compatible with known Chiari I malformation. No chronic ischemic insults. Normal intravascular flow voids are present. Skull and face: Calvarium has normal marrow signal. Orbits appear normal. Sinuses: Mucosal thickening noted in the maxillary sinuses bilaterally. Small mucous retention cyst versus polyp is noted in the right maxillary sinus. The mastoids are clear. IMPRESSION: 1. Chiari I malformation stable compared to prior examinations. 2. No hydrocephalus or cervical spinal cord syrinx. 3. No abnormal intracranial mass. 4. Bilateral maxillary sinus mucosal thickening. Please correlate clinically to exclude sinusitis. 4. Small right maxillary sinus mucous retention cyst versus polyp. Dictated by: Naa Davis MD, PhD on 05/16/2018 at 9:21 Approved by: Naa Davis MD, PhD on 05/16/2018 at 9:27
== END ==
PROVIDERS: PCP Family Medicine; Visit Provider Family Medicine
DX: G93.5 Compression of brain (principal); R51 Headache
CPT/HCPCS: 70551

== ENCOUNTER → 2018-11-24 12:40 | Outpatient (CLI) | payer OTHER, SELFPAY ==
[2018-11-24 12:54] LABS: Add Manual Diff / Slide Review NO; Basophils Absolute Auto 0 /uL (0-100); Basophils Percent Auto 0.5 % (0-2); Eosinophils Absolute Auto 200 /uL (0-450); Eosinophils Percent Auto 3.3 % (2-4); Hematocrit 47.1 % (41-53); Hemoglobin 16.1 g/dL (13.5-17.5); Lymphocytes Absolute Auto 1800 /uL (1100-4500); Lymphocytes Percent Auto 33.5 % (25-40); Mean Corpuscular HGB Conc 34.2 % (30-36); Mean Corpuscular Hemoglobin 31.5 PG (26-34); Mean Corpuscular Volume 92.1 fL (80-100); Monocytes Absolute Auto 400 /uL (0-900); Monocytes Percent Auto 7.7 % (3-14); Neutrophils Absolute Auto 3000 /uL (1500-7000); Platelet Count 233 X10^3/uL (150-400); Red Blood Cell Count 5.12 X10^6/uL (4.5-5.9); Red Cell Distribution Width 13.1 % (11.6-14.8); White Blood Cell Count 5.4 X10^3/uL (4.5-11.0)
[2018-11-24 13:25] LABS: Alanine Aminotransferase 20 IU/L (21-72); Albumin 4.6 g/dL (3.5-5.0); Albumin Globulin Ratio 1.6 (1.0-2.8); Alkaline Phosphatase 59 U/L (38-126); Aspartate Aminotransferase 20 IU/L (17-59); Bilirubin Total 1.8 mg/dL (0.2-1.3); Bilirubin Unconjugated 1.7 mg/dL (0.0-1.1); Blood Urea Nitrogen 18 mg/dL (9-20); Carbon Dioxide 28 mmol/L (22-32); Chloride 101 mmol/L (98-107); Cholesterol 222 mg/dL (140-199); Estimated Glomerular Filt Rate > 60.0 mL/min (>60); Globulin 2.8 g/dL (1.7-4.1); Glucose 86 mg/dL (70-100); HDL Cholesterol 51 mg/dL (40-60); HEMOLYSIS < 15 (0-50); LDL Cholesterol Calculated 151 mg/dL (<100); Potassium 4.4 mmol/L (3.4-5.1); Sodium 140 mmol/L (137-145); Total Protein 7.4 g/dL (6.3-8.2); Triglycerides 98 mg/dL (35-150)
[2018-11-24 13:41] LABS: Free T4, Direct Thyroxine 1.02 ng/dL (0.78-2.19)
[2018-11-24 13:55] LABS: Thyroid Stimulating Hormone 2.03 uIU/mL (0.47-4.68)
== END ==
PROVIDERS: Family Provider Family Medicine; PCP Family Medicine; Visit Provider Psychiatry & Neurology Psychiatry
DX: F41.9 Anxiety disorder, unspecified (principal); F43.10 Post-traumatic stress disorder, unspecified
CPT/HCPCS: 36415; 80053; 80061; 80076; 84439; 84443; 85025

== ENCOUNTER → 2019-01-08 16:02 | Outpatient (CLI) | payer OTHER, SELFPAY | PROVIDERS: PCP Family Medicine | DX: Z23 Encounter for immunization (principal) | CPT/HCPCS: 90471; 90686 ==

== ENCOUNTER 2019-04-09 12:47 | Emergency (ER) | payer OTHER, SELFPAY ==
[2019-04-09 13:02] VITALS: BP 144/96; PULSE 90; RESP 15; TEMP 36.6; O2SAT 99; BMI 27.7
--- NOTE | 2019-04-09 13:10 | DI.RAD.S_ITS ---
PROCEDURE: XR CHEST 2V INDICATIONS: coughed up some blood,1 week cough TECHNIQUE: 2 views of the chest were acquired. COMPARISON: [facility], CR, CHEST 2VW, 11/29/2010, 16:05. [facility], CR, CHEST 2 VIEW, 10/22/2016, 13:03. [facility], CR, XR CHEST 2V, 05/13/2018, 16:49. FINDINGS: Surgical changes and devices: None. Lungs and pleura: Lungs are clear. No pleural effusions or pneumothorax. Mediastinum: Mediastinal contours are normal. Heart size is normal. Bones and chest wall: No suspicious bony abnormalities. Soft tissues appear unremarkable. IMPRESSION: No acute cardiopulmonary disease. Dictated by: Donna Simons M.D. on 04/09/2019 at 13:43 Approved by: Donna Simons M.D. on 04/09/2019 at 13:46
--- NOTE | 2019-04-09 14:38 | ED_ITS ---
HPI - URI/Sore Throat <Josy Burgess PA-C - Last Filed: 04/09/19 19:03> General Chief Complaint: Upper Respiratory Symptoms Stated Complaint: coughing up blood Time Seen by Provider: 04/09/19 13:10 Source: patient Mode of arrival: Ambulatory Limitations: no limitations History of Present Illness HPI Narrative: This 33-year-old male comes to ED secondary to hemoptysis today. He states that he has had a cough, mainly dry, for about a week along with nasal congestion. He states that he has a little bit of sinus congestion as well, denies sore throat, earache, or fever, chills, and sweats. He states that he was coughing fairly hard this morning and felt like he had congestion in his throat. Brought up some phlegm and there were specks of blood in it, which persisted as he cough. He states cough is better this afternoon than this morning and he is not bringing up more blood now. He has been coughing fairly hard. He states that his chest felt slightly tight this morning but his inhaler is working as it usually does for his asthma. He does not feel more short of breath. He does not have chest pain. He states he has felt tired since ill, but not feeling faint. He denies any lower extremity swelling or pain. He does have a history of PE approximately 9 years ago after a long flight back from [place], no others. He has not had any recent surgery or immobilization. He quit smoking THC just over a month ago and feels like overall his asthma is a bit better. He does not use tobacco. He does not know of any family members with history of DVT or PE. He states he is concerned because his grandmother developed lung cancer in her 70s and symptoms started with hemoptysis Related Data Home Medications Medication Instructions Recorded Confirmed acetaminophen [Tylenol Extra 500 mg PO Q6HP PRN #0 02/05/16 04/09/19 Strength] Nebulizer: Home Unit 1 ea MISCELLANEOUS DIRECTED 05/13/18 04/09/19 Tums 1 tab PO PRN PRN 05/13/18 04/09/19 albuterol sulfate 3 ml INH Q4HP PRN 05/13/18 04/09/19 cetirizine 10 mg PO DAILY 05/13/18 04/09/19 albuterol sulfate 2 puff INHALATION Q4H PRN 04/09/19 04/09/19 Previous Rx's Medication Instructions Recorded fluticasone 250 mcg-salmeterol 50 1 inhalation INHALATION BID #60 12/24/18 mcg/dose blistr powdr for each inhalation clonazepam 0.5 mg tablet 0.25 mg PO BID PRN #60 tab 03/23/19 mirtazapine 15 mg tablet 15 mg PO BEDTIME #30 tab 03/23/19 Allergies Allergy/AdvReac Type Severity Reaction Status Date / Time No Known Drug Allergies Allergy Verified 04/09/19 13:08 Review of Systems <Josy Burgess PA-C - Last Filed: 04/09/19 19:03> Review of Systems ROS Unobtainable: All systems reviewed & are unremarkable except as noted in HPI and below Patient History <Josy Burgess PA-C - Last Filed: 04/09/19 19:03> Surgical History Anesthesia (Resolved) Fracture of radius and ulna (Resolved ~1997) History of third molar tooth extraction (~2001) Social History Smoking Status: Former smoker alcohol intake: former substance use type: does not use Smoking Status: Former smoker Exam <Josy Burgess PA-C - Last Filed: 04/09/19 19:03> Narrative Exam Narrative: GENERAL APPEARANCE: Patient sitting comfortably, in no distress.. EYES: PERRL, EOMI. EARS: Normal auditory canals, TMS intact with normal light reflexes. ORAL CAVITY: Normal oropharynx. THROAT: Clear. NECK/THYROID: Neck supple, full range of motion, no cervical lymphadenopathy. LUNGS: Clear to auscultation bilaterally no cough on exam. HEART: RRR without murmur, nl S1, S2, no S3 or S4. EXTREMITIES: No cyanosis or edema, no calf tenderness Initial Vital Signs Initial Vital Signs: Vital Signs Temperature 97.8 F 04/09/19 13:02 Pulse Rate 90 04/09/19 13:02 Respiratory Rate 15 04/09/19 13:02 Blood Pressure 144/96 H 04/09/19 13:02 Pulse Oximetry 99 04/09/19 13:02 <Ayaz Lynn DO - Last Filed: 04/09/19 19:15> Initial Vital Signs Initial Vital Signs: Vital Signs Temperature 97.8 F 04/09/19 13:02 Pulse Rate 90 04/09/19 13:02 Respiratory Rate 15 04/09/19 13:02 Blood Pressure 144/96 H 04/09/19 13:02 Pulse Oximetry 99 04/09/19 13:02 Scores <Josy Burgess PA-C - Last Filed: 04/09/19 19:03> PERC Score Age greater than or equal to 50 years: No Heart rate greater than or equal to 100 bpm: No Room Air O2 Sat less than 95%: No Unilateral leg swelling: No Recent trauma or surgery: No Hemoptysis: Yes Prior PE or DVT: Yes Hormone Use: No Total PERC Score: 2 Course <Josy Burgess PA-C - Last Filed: 04/09/19 19:03> Course Additional Information: Suspect that patient's hemoptysis/specks of blood in sputum are related to recent upper respiratory infection and persistent cough. His PERC score is 2, however his pulmonary embolus was remote following a long flight and travel, he has not had any recurrence nor any family history. We dis cussed doing D-dimer and pros and cons of further testing, however in this setting appears reasonable to observe and he is agreeable. He declined cough syrup. He agrees to return right away should he develop new symptoms such as chest pain, new dyspnea, lower extremity swelling. Orders Ordered: ED Orders 04/09/19 13:10 Chest [XR chest 2V] Stat Vital Signs Vital signs: Vital Signs - 8 hr 04/09/19 13:02 04/09/19 15:14 Temperature 97.8 F Pulse Rate 90 74 Respiratory Rate 15 16 Blood Pressure 144/96 H 127/90 Pulse Oximetry 99 96 <DO Henry Thao Last Filed: 04/09/19 19:15> Orders Ordered: ED Orders 04/09/19 13:10 Chest [XR chest 2V] Stat Vital Signs Vital signs: Vital Signs - 8 hr 04/09/19 13:02 04/09/19 15:14 Temperature 97.8 F Pulse Rate 90 74 Respiratory Rate 15 16 Blood Pressure 144/96 H 127/90 Pulse Oximetry 99 96 Discharge Plan Departure Patient Disposition: Home Clinical Impression: Bronchitis, Cough with hemoptysis Discharge Date/Time: 04/09/19 15:15 Instructions: DI for Acute Bronchitis, DI for Hemoptysis Activity Restrictions/Additional Instructions: I suspect that your bleeding in the phlegm and with your cough today is related to having bronchitis and having been coughing quite a bit for the last week. Your chest x-ray did not show any acute problem today, and based on your history and exam I think you can monitor this. As we talked about, you should return right away if you have any new symptoms such as increased bleeding, chest pain, shortness of breath where your inhaler is not working as usual, feeling faint or having high fever, or new swelling in your legs, as we would want to do further evaluation for blood clot. Otherwise you can monitor and follow-up with your PCP in a few days as you have planned. Please be sure to continue your steroid inhaler, and use your albuterol at least twice daily for now, more often as needed to help with her cough Prescriptions: No Action mirtazapine 15 mg tablet 15 mg PO BEDTIME Qty: 30 RF: 1 clonazepam 0.5 mg tablet 0.25 mg PO BID PRN (Reason: panic attack(s)) Qty: 60 RF: 0 acetaminophen [Tylenol Extra Strength] 500 MG tablet 500 mg PO Q6HP PRN (Reason: pain, headache, fever) Qty: 0 RF: 0 fluticasone propion-salmeterol [Wixela Inhub] 250-50 mcg/dose blister with device 1 inhalation INHALATION BID Qty: 60 RF: 11 albuterol sulfate 90 mcg/actuation HFA aerosol inhaler 2 puff inhalation Q4H PRN (Reason: Shortness Of Breath) RF: 0 albuterol sulfate 2.5 MG/3 ML solution for nebulization 3 ml INH Q4HP PRN (Reason: Shortness Of Breath) RF: 0 cetirizine 10 mg Tablet 10 mg PO DAILY RF: 0 Tums 1 tab PO PRN PRN (Reason: Indigestion) RF: 0 Nebulizer: Home Unit 1 ea miscellaneous DIRECTED RF: 0 Referrals: Gui Bustos MD [Primary Care Provider] -
[2019-04-09 15:14] VITALS: BP 127/90; PULSE 74; RESP 16; O2SAT 96
== END 2019-04-09 15:15 | disposition home or self-care (01) ==
PROVIDERS: Emergency Provider Internal Medicine; PCP Family Medicine
DX: J40 Bronchitis, not specified as acute or chronic (principal); R04.2 Hemoptysis
CPT/HCPCS: 71046; 99283

== ENCOUNTER 2019-08-31 22:25 | Emergency (ER) | payer OTHER, SELFPAY ==
[2019-08-31 22:36] VITALS: BP 148/88; PULSE 75; RESP 18; TEMP 36.6; O2SAT 95; BMI 27.7
--- NOTE | 2019-08-31 23:55 | ED_ITS ---
HPI - Headache General Chief Complaint: Headache Stated Complaint: High BP/Head Pressure Time Seen by Provider: 08/31/19 23:40 Mode of arrival: Ambulatory Limitations: no limitations History of Present Illness HPI Narrative: 34-year-old gentleman with a history of seasonal allergies, asthma, anxiety and frequent headaches presents with headache that has been present for approximately 12 hours. Started in his left trapezius left side of the neck worked its way up the left side of his head to a stabbing pain behind his eye and earlier this afternoon was associated with some fleeting palpitations. Became very anxious with the persistent pain and palpitations and presents to the ER for further evaluation. His headache he notes is calming significantly at this time. He has not taken any medications for the headache this time. Related Data Home Medications Medication Instructions Recorded Confirmed acetaminophen [Tylenol Extra 500 mg PO Q6HP PRN #0 02/05/16 05/18/19 Strength] Nebulizer: Home Unit 1 ea MISCELLANEOUS DIRECTED 05/13/18 05/18/19 Tums 1 tab PO PRN PRN 05/13/18 05/18/19 cetirizine 10 mg PO DAILY 05/13/18 05/18/19 albuterol sulfate 2 puff INHALATION Q4H PRN 04/09/19 05/18/19 Previous Rx's Medication Instructions Recorded fluticasone 250 mcg-salmeterol 50 1 inhalation INHALATION BID #60 12/24/18 mcg/dose blistr powdr for each inhalation albuterol sulfate 2.5 mg INHALATION Q4HP PRN #75 ml 05/18/19 fluconazole 150 mg tablet 150 mg PO Q3D #5 tab 05/18/19 ketoconazole 2 % topical cream See Rx Instructions TOP BID #30 05/18/19 gram clonazepam 0.5 mg tablet See Rx Instructions .ROUTE 07/09/19 .COMPLEX #60 tablet Allergies Allergy/AdvReac Type Severity Reaction Status Date / Time buspirone AdvReac Intermediate intense Verified 05/18/19 11:34 dizziness, nausea, vomitting Review of Systems Review of Systems Narrative: Pertinent positive and negative findings as per HPI Remainder of review of systems is otherwise unremarkable for Constitutional: Fevers, chills, weakness ENT: No sore throat, ear pain CV: Chest pain, palpitations, dyspnea on exertion Respiratory: Cough, wheeze, dyspnea GI: Nausea, vomiting, diarrhea, change in bowel habits, black or bloody stools : Dysuria, hematuria, flank pain MS: Muscle weakness, numbness, joint swelling or warmth Skin: Rashes, nonhealing lesions Neuro: Syncope, dizziness, tingling Psych: Depression, suicidal ideation Patient History Medical History Acne (Resolved) ADHD (Chronic ~2011) Anxiety (Chronic ~2009) Depression (Chronic ~2009) Hay fever with asthma (Chronic) Kidney stones (Chronic ~2011) Low testosterone (Chronic ~2011) Pulmonary embolism (Chronic ~07/2011) PVCs (premature ventricular contractions) (Chronic ~2015) Recurrent sinusitis (Chronic ~2014) Rhabdomyolysis (Chronic ~2006) Substance abuse (Chronic ~2009) Vertigo (Chronic ~2009) Surgical History Anesthesia (Resolved) Fracture of radius and ulna (Resolved ~1997) History of third molar tooth extraction (~2001) Family History Brother Age: 30 Seizures Mental health problem Manic depression Father Age: 67 Pinched nerve Mother Age: 59 Hypertension Smoker Mental health problem Diabetes mellitus Alcoholic Sister Age: 35 Cancer Depression Grandmother No problems noted. Social History Smoking Status: Former smoker alcohol intake: former substance use type: does not use Smoking Status: Former smoker alcohol intake frequency: 0-2 drinks per day Substance Use Type: does not use Exam Narrative Exam Narrative: General: Alert appropriate in no acute distress Respiratory: Able to speak in full sentences, no obvious respiratory distress Skin: No obvious rashes, warm and dry Neurologic: Grossly intact no obvious asymmetries or abnormalities. Pupils are equal and reactive Psych, appropriate insight and affect, cooperative Initial Vital Signs Initial Vital Signs: Vital Signs Temperature 97.8 F 08/31/19 22:36 Pulse Rate 75 08/31/19 22:36 Respiratory Rate 18 08/31/19 22:36 Blood Pressure 148/88 H 08/31/19 22:36 Pulse Oximetry 95 08/31/19 22:36 Course Orders Ordered: Discontinued Medications Acetaminophen (Tylenol) 325 mg PO NOW ONE Stop: 08/31/19 23:56 Ibuprofen (Advil) 400 mg PO NOW ONE Stop: 08/31/19 23:56 Vital Signs Vital signs: Vital Signs - 8 hr 08/31/19 22:36 Temperature 97.8 F Pulse Rate 75 Respiratory Rate 18 Blood Pressure 148/88 H Pulse Oximetry 95 MDM - Headache MDM Narrative Medical decision making narrative: Headaches occurring at least 3 times a week with increasing anxiety. Today symptoms are dramatically reduced prior to even my evaluation. He is given 400 mg of ibuprofen and Tylenol with even further relief. Be discharged home with instructions on [id number] medications to use for headaches and a suggestion that he follow-up with his primary care physician to talk about chronic headaches and better control. He may be an excellent candidate for low-dose HS amitriptyline given anxiety and insomnia issues as well. He is safe for home discharge at this time Discharge Plan Departure Patient Disposition: Home Clinical Impression: Headache Qualifiers: Headache type: unspecified Headache chronicity pattern: chronic headache Intractability: not intractable Qualified Code(s): R51 - Headache Instructions: DI for Headache Activity Restrictions/Additional Instructions: Thank you for coming in today I am pleased that your symptoms were resolving even before any treatment in the emergency department. Here exam and her history is reassuring. Having he adaches at least 3 times a week is quite frequent and does deserve further evaluation. You may find that using a daily headache preventive medication can help. Please schedule an appointment with to talk about this. In the meantime, using 400 mg of ibuprofen (2 [id number] pills) and 1 Tylenol every 6 hours can be very helpful in controlling pain. Similarly, Excedrin may be far more effective for you than Tylenol in controlling headaches. Making sure that you are drinking plenty of water, avoiding low blood sugar, committing to regular sleep habits and avoiding caffeine can all help in reducing frequency of headaches. I hope you feel better. Prescriptions: No Action ketoconazole 2 % cream See Rx Instructions TOP BID Qty: 30 RF: 0 fluconazole [Diflucan] 150 mg tablet 150 mg PO Q3D Qty: 5 RF: 0 albuterol sulfate 2.5 mg /3 mL (0.083 %) solution for nebulization 2.5 mg inhalation Q4HP PRN (Reason: Shortness Of Breath) Qty: 75 RF: 0 acetaminophen [Tylenol Extra Strength] 500 MG tablet 500 mg PO Q6HP PRN (Reason: pain, headache, fever) Qty: 0 RF: 0 fluticasone propion-salmeterol [Wixela Inhub] 250-50 mcg/dose blister with device 1 inhalation INHALATION BID Qty: 60 RF: 11 clonazepam 0.5 mg tablet See Rx Instructions .ROUTE .COMPLEX Qty: 60 RF: 0 albuterol sulfate 90 mcg/actuation HFA aerosol inhaler 2 puff inhalation Q4H PRN (Reason: Shortness Of Breath) RF: 0 cetirizine 10 mg Tablet 10 mg PO DAILY RF: 0 Tums 1 tab PO PRN PRN (Reason: Indigestion) RF: 0 Nebulizer: Home Unit 1 ea miscellaneous DIRECTED RF: 0 Referrals: Gui Bustos MD [Primary Care Provider] -
[2019-09-01] MEDS: IBUPROFEN 400 MG TABLET PO (00:12)
[2019-09-01] MEDS: ACETAMINOPHEN 325 MG TABLET PO (00:12)
[2019-09-01 00:21] VITALS: BP 114/72; PULSE 63; RESP 18; O2SAT 95
== END 2019-09-01 00:22 | disposition home or self-care (01) ==
PROVIDERS: Emergency Provider Emergency Medicine; PCP Family Medicine
DX: R51 Headache (principal); I10 Essential (primary) hypertension; F41.9 Anxiety disorder, unspecified
CPT/HCPCS: 99281; 99283

== ENCOUNTER → 2019-12-29 13:40 | Outpatient (CLI) | payer OTHER, SELFPAY ==
[2019-12-31 08:41] LABS: COVID19 Sendout Not Detected (Not Detect)
== END ==
PROVIDERS: PCP Family Medicine; Visit Provider Physician Assistant
DX: Z03.818 Encounter for observation for suspected exposure to other biological agents ruled out (principal); R05 Cough; R53.1 Weakness; R53.83 Other fatigue
CPT/HCPCS: 87635

== ENCOUNTER → 2019-12-31 | Outpatient (CLI) | payer OTHER, SELFPAY | PROVIDERS: PCP Family Medicine; Referring Provider Internal Medicine; Visit Provider Internal Medicine | DX: Z23 Encounter for immunization (principal) | CPT/HCPCS: 90471; 90686 ==

== ENCOUNTER → 2020-03-18 16:06 | Outpatient (CLI) | payer OTHER, SELFPAY ==
[2020-03-18 16:47] LABS: Add Manual Diff / Slide Review NO; Basophils Absolute Auto 0 /uL (0-100); Basophils Percent Auto 0.3 % (0-2); Eosinophils Absolute Auto 300 /uL (0-450); Eosinophils Percent Auto 3.9 % (2-4); Hematocrit 45.6 % (41-53); Hemoglobin 15.6 g/dL (13.5-17.5); Lymphocytes Absolute Auto 2300 /uL (1100-4500); Mean Corpuscular HGB Conc 34.3 % (30-36); Mean Corpuscular Hemoglobin 31.7 PG (26-34); Mean Corpuscular Volume 92.3 fL (80-100); Monocytes Absolute Auto 500 /uL (0-900); Monocytes Percent Auto 6.9 % (3-14); Neutrophils Absolute Auto 4400 /uL (1500-7000); Neutrophils Percent Auto 58.9 % (50-75); Platelet Count 240 X10^3/uL (150-400); Red Blood Cell Count 4.94 X10^6/uL (4.5-5.9); White Blood Cell Count 7.5 X10^3/uL (4.5-11.0)
[2020-03-18 17:13] LABS: Alanine Aminotransferase 31 IU/L (<50); Albumin 4.4 g/dL (3.5-5.0); Albumin Globulin Ratio 1.4 (1.0-2.8); Alkaline Phosphatase 65 U/L (38-126); Aspartate Aminotransferase 75 IU/L (17-59); BUN Creatinine Ratio 20.5 (6-22); Bilirubin Total 0.7 mg/dL (0.2-1.3); Blood Urea Nitrogen 23 mg/dL (9-20); Calcium 9.3 mg/dL (8.4-10.2); Carbon Dioxide 34 mmol/L (22-32); Chloride 102 mmol/L (98-107); Estimated Glomerular Filt Rate > 60.0 mL/min (>60); Globulin 3.2 g/dL (1.7-4.1); Glucose 102 mg/dL (70-100); HEMOLYSIS 15 (0-50); Lithium < 0.2 mmol/L (0.6-1.2); Potassium 4.3 mmol/L (3.4-5.1); Sodium 139 mmol/L (137-145); Total Protein 7.6 g/dL (6.3-8.2)
[2020-03-18 17:43] LABS: TSH w/ Reflex to FT4 1.62 uIU/mL (0.47-4.68)
== END ==
PROVIDERS: Psychiatry & Neurology Psychiatry; PCP Family Medicine; Referring Provider Family Medicine; Visit Provider Family Medicine
DX: F31.63 Bipolar disorder, current episode mixed, severe, without psychotic features (principal); F41.9 Anxiety disorder, unspecified; R53.83 Other fatigue; Z00.00 Encounter for general adult medical examination without abnormal findings; Z13.6 Encounter for screening for cardiovascular disorders
CPT/HCPCS: 36415; 80053; 80178; 84443; 85025

== ENCOUNTER → 2020-04-20 13:34 | Outpatient (CLI) | payer OTHER, SELFPAY ==
[2020-04-20 14:43] LABS: COVID19 -Nasal RAPID Negative (Negative)
== END ==
PROVIDERS: PCP Family Medicine; Visit Provider Nurse Practitioner
DX: R05 Cough (principal); R53.83 Other fatigue; Z20.822 Contact with and (suspected) exposure to COVID-19
CPT/HCPCS: 87635

== ENCOUNTER 2020-06-07 10:12 | Emergency (ER) | payer OTHER, SELFPAY ==
[2020-06-07 10:18] VITALS: BP 152/85; PULSE 97; RESP 16; TEMP 36.6; O2SAT 99; BMI 29.7
[2020-06-07 10:20] VITALS: BP 152/85; PULSE 109; O2SAT 99
[2020-06-07 10:30] VITALS: BP 139/81; PULSE 89; RESP 24; O2SAT 98
[2020-06-07 10:33] VITALS: PULSE 100; RESP 24; O2SAT 97
--- NOTE | 2020-06-07 10:36 | ED_ITS ---
HPI - SOB/Dyspnea General Chief Complaint: Shortness of Breath/Dyspnea Stated Complaint: Trouble breathing Time Seen by Provider: 06/07/20 10:15 Source: patient Mode of arrival: Ambulatory Limitations: no limitations History of Present Illness HPI Narrative: 35-year-old male nonsmoker with extensive history of asthma presents with a chief complaint of increasing difficulty breathing over the morning. He has used his inhaler quite a few times but without a spacer and now feels shaky with minimal resolution of his breathing symptoms. He denies any productive cough and has had no fever or chills. He ran out of his Advair 2 days ago. He denies any nausea, vomiting or diarrhea MD Complaint: shortness of breath and asthma attack Onset (ago): hour(s) Context: medication noncompliance Severity: moderate Consistency/Duration: constant Relieving factors: nothing Known history of: asthma Associated symptoms: denies other symptoms Treatment prior to arrival: none Related Data Home oxygen amount: none Home Medications Medication Instructions Recorded Confirmed acetaminophen [Tylenol Extra 500 mg PO Q6HP PRN #0 02/05/16 04/18/20 Strength] Nebulizer: Home Unit 1 ea MISCELLANEOUS DIRECTED 05/13/18 04/18/20 Tums 1 tab PO PRN PRN 05/13/18 04/18/20 cetirizine 10 mg PO DAILY 05/13/18 04/18/20 Previous Rx's Medication Instructions Recorded ketoconazole 2 % topical cream See Rx Instructions TOP BID #30 05/18/19 gram albuterol sulfate 2.5 mg INHALATION Q4HP PRN #75 ml 11/12/19 fluticasone 250 mcg-salmeterol 50 1 inhalation INHALATION BID #120 12/02/19 mcg/dose blistr powdr for each inhalation albuterol sulfate 90 mcg/actuation 2 puff INHALATION Q4H PRN #8.5 gram 02/04/20 aerosol inhaler montelukast 10 mg tablet 10 mg PO DAILY #30 tab 03/01/20 clonazepam 0.5 mg tablet See Rx Instructions .ROUTE 03/02/20 .COMPLEX #60 tablet lithium carbonate 300 mg capsule 300 mg PO BEDTIME #30 cap 03/02/20 doxycycline hyclate 100 mg tablet 100 mg PO BID #14 tab 04/21/20 prednisone See Rx Instructions .ROUTE 06/07/20 .COMPLEX #30 tab Allergies Allergy/AdvReac Type Severity Reaction Status Date / Time buspirone AdvReac Intermediate intense Verified 06/07/20 10:23 dizziness, nausea, vomitting Review of Systems Constitutional Constitutional: Denies chills, Denies fatigue, Denies fever(s), Denies frequent falls, Denies lethargy and Denies weakness Eyes Eyes: Denies change in vision, Denies eye discharge, Denies irritation and Denies loss of vision ENT Ears, Nose, Mouth, and Throat: Denies change in voice, Denies dizziness, Denies neck pain, Denies sore throat and Denies throat swelling Cardiovascular Cardiovascular: Denies chest pain, Denies irregular heart rhythm, Denies lightheadedness, Denies palpitations, Reports dyspnea, Denies dyspnea on exertion and Denies orthopnea Respiratory Respiratory: Denies cough, Reports dyspnea, Denies dyspnea on exertion and Reports wheezing Gastrointestinal Gastrointestinal: Denies abdominal pain, Denies change in bowel habits, Denies diarrhea, Denies nausea and Denies vomiting Musculoskeletal Musculoskeletal: Denies neck pain and Denies numbness Integumentary/Breasts Skin/Breast: Denies pruritus, Denies erythema, Denies rash and Denies wounds Neurologic Neurologic: Denies behavioral changes, Denies confusion, Denies dizziness, Denies frequent falls, Denies loss of vision, Denies numbness and Denies weakness Psychiatric Psychiatric: Denies anxiety, Denies behavioral changes, Denies confusion, Denies depression, Denies homicidal ideation and Denies suicidal ideation Endocrine Endocrine: Denies fatigue, Denies flushing and Denies palpitations Hematologic/Lymphatic Hematologic/Lymphatic: Denies easy bruising Allergic/Immunologic Allergic/Immunologic: Denies urticaria, Denies throat swelling and Reports wheezing Patient History Medical History (Updated 06/07/20 @ 11:32 by Ayaz Lynn DO) Acne ADHD (~2011) Anxiety (~2009) Depression (~2009) Hay fever with asthma Kidney stones (~2011) Low testosterone (~2011) Pulmonary embolism (~07/2011) PVCs (premature ventricular contractions) (~2015) Recurrent sinusitis (~2014) Rhabdomyolysis (~2006) Substance abuse (~2009) Vertigo (~2009) Surgical History Anesthesia Fracture of radius and ulna (~1997) History of third molar tooth extraction (~2001) Family History Brother Age: 31 Seizures Mental health problem Manic depression Father Age: 68 Pinched nerve Mother Age: 60 Hypertension Smoker Mental health problem Diabetes mellitus Alcoholic Sister Age: 36 Cancer Depression Grandmother No problems noted. Social History Smoking Status: Former smoker alcohol intake: former substance use type: does not use Smoking Status: Former smoker alcohol intake frequency: 0-2 drinks per day Substance Use Type: does not use Exam Narrative Exam Narrative: GENERAL: [35] year old patient appears stated age. Well- nourished, well-developed patient, in mild distress. Anxious, a bit jittery HEAD: Atraumatic. Normocephalic. EYES: Pupils equal round and reactive. Extraocular motions intact. No scleral icterus. No injection or drainage. ENT: Nose without bleeding, purulent drainage. Throat without erythema, tonsillar hypertrophy or exudate. Airway patent. NECK: Trachea midline. Non tender CARDIOVASCULAR: Regular rate and rhythm without murmurs, gallops, or rubs. RESPIRATORY: Decreased breath sounds bilaterally with expiratory wheeze. No significant work of breathing or use of accessory muscles GASTROINTESTINAL: Abdomen soft, non-tender, nondistended. EXTREMITIES: No edema or joint tenderness. BACK: Nontender without deformity or crepitance. No flank tenderness. NEURO: AOx3. SKIN: No rash or erythema of visible areas Initial Vital Signs Initial Vital Signs: Vital Signs Temperature 97.8 F 06/07/20 10:18 Pulse Rate 97 H 06/07/20 10:18 Respiratory Rate 16 06/07/20 10:18 Blood Pressure 152/85 H 06/07/20 10:18 Pulse Oximetry 99 06/07/20 10:18 Course Course Course Narrative: Significant improvement after above-stated therapies. Orders Ordered: ED Orders 06/07/20 10:18 COVID19 Stat Discontinued Medications Albuterol/Ipratropium (Albuterol/Ipratropium 3 Ml Ampul) 3 ml INH NOW ONE Stop: 06/07/20 10:57 Last Admin: 06/07/20 11:03 Dose: 3 ml Documented by: PRANAY Methylprednisolone (Methylprednisolone 125 Mg/2 Ml Vial) 125 mg IV NOW ONE Stop: 06/07/20 10:37 Last Admin: 06/07/20 10:43 Dose: 125 mg Documented by: TIM Vital Signs Vital signs: Vital Signs - 8 hr 06/07/20 10:18 06/07/20 10:20 06/07/20 10:30 Temperature 97.8 F Pulse Rate 97 H 109 H 89 Respiratory Rate 16 24 Blood Pressure 152/85 H 152/85 H 139/81 Pulse Oximetry 99 99 98 06/07/20 10:33 06/07/20 11:00 Temperature Pulse Rate 100 H 83 Respiratory Rate 24 23 Blood Pressure 128/80 Pulse Oximetry 97 100 MDM - SOB/Dyspnea Lab Data Labs: Lab Results 06/07/20 Range/Units 10:18 SARS-CoV-2 (PCR) Negative (Negative) Discharge Plan Departure Patient Disposition: Home Clinical Impression: Asthma with exacerbation Qualifiers: Asthma severity: moderate Asthma persistence: unspecified Qualified Code(s): J45.901 - Unspecified asthma with (acute) exacerbation Instructions: DI for Asthma -- Adult Activity Restrictions/Additional Instructions: *You have been diagnosed with [ asthma exacerbation] *What to do: *Take medications as directed: Please remember to use that chamber with your albuterol inhaler *Follow up with your primary care provider in 2-3 days, call for an sivakumar ointment. Let them know you were seen in the Emergency Department and that we ask that you be seen in follow up *Return to ER if you should have any new, worsening or concerning symptoms Prescriptions: New prednisone 10 mg tablet See Rx Instructions .ROUTE .COMPLEX Qty: 30 RF: 0 No Action ketoconazole 2 % cream See Rx Instructions TOP BID Qty: 30 RF: 0 clonazepam 0.5 mg tablet See Rx Instructions .ROUTE .COMPLEX Qty: 60 RF: 0 lithium carbonate 300 mg capsule 300 mg PO BEDTIME Qty: 30 RF: 1 acetaminophen [Tylenol Extra Strength] 500 MG tablet 500 mg PO Q6HP PRN (Reason: pain, headache, fever) Qty: 0 RF: 0 albuterol sulfate 2.5 mg /3 mL (0.083 %) solution for nebulization 2.5 mg inhalation Q4HP PRN (Reason: Shortness Of Breath) Qty: 75 RF: 0 fluticasone propion-salmeterol [Wixela Inhub] 250-50 mcg/dose blister with device 1 inhalation INHALATION BID Qty: 120 RF: 11 albuterol sulfate 90 mcg/actuation HFA aerosol inhaler 2 puff inhalation Q4H PRN (Reason: Shortness Of Breath) Qty: 8.5 RF: 11 montelukast [Singulair] 10 mg tablet 10 mg PO DAILY Qty: 30 RF: 5 doxycycline hyclate 100 mg tablet 100 mg PO BID Qty: 14 RF: 0 cetirizine 10 mg Tablet 10 mg PO DAILY RF: 0 Tums 1 tab PO PRN PRN (Reason: Indigestion) RF: 0 Nebulizer: Home Unit 1 ea miscellaneous DIRECTED RF: 0 Referrals: Gui Bustos MD [Primary Care Provider] -
[2020-06-07] MEDS: methylPREDNISolone 125 MG/2 ML VIAL IV (10:43)
[2020-06-07 10:50] LABS: COVID19 -Nasal RAPID Negative (Negative)
[2020-06-07 11:00] VITALS: BP 128/80; PULSE 83; RESP 23; O2SAT 100
[2020-06-07] MEDS: ALBUTEROL/IPRATROPIUM 3 ML AMPUL INH (11:03)
--- NOTE | 2020-06-07 11:26 | PC.NURSE ---
pt with improvement s/p duoneb x 1
== END 2020-06-07 11:41 | disposition home or self-care (01) ==
PROVIDERS: Emergency Provider Emergency Medicine; PCP Family Medicine
DX: J45.901 Unspecified asthma with (acute) exacerbation (principal); Z20.822 Contact with and (suspected) exposure to COVID-19
CPT/HCPCS: 36415; 87635; 94150; 94640; 96374; 99283; 99284; C9803; J2930

== ENCOUNTER → 2020-06-13 11:16 | Outpatient (CLI) | payer OTHER, SELFPAY ==
[2020-06-13] MEDS: COVID-19 VACC, Ad26(JANSSEN)/PF 0.5 ML IM (11:29)
== END ==
PROVIDERS: PCP Family Medicine; Visit Provider Internal Medicine
DX: Z23 Encounter for immunization (principal)
CPT/HCPCS: 0031A; 91303

== ENCOUNTER → 2020-09-05 09:56 | Outpatient (CLI) | payer OTHER, SELFPAY ==
[2020-09-05 11:23] LABS: Lithium < 0.2 mmol/L (0.6-1.2)
[2020-09-05 11:29] LABS: BUN Creatinine Ratio 18.1 (6-22); Blood Urea Nitrogen 17 mg/dL (9-20); Carbon Dioxide 27 mmol/L (22-32); Chloride 105 mmol/L (98-107); Estimated Glomerular Filt Rate > 60.0 mL/min (>60); Glucose 103 mg/dL (70-100); HEMOLYSIS < 15 (0-50); Potassium 4.3 mmol/L (3.4-5.1); Sodium 140 mmol/L (137-145)
== END ==
PROVIDERS: PCP Family Medicine; Referring Provider Psychiatry & Neurology Psychiatry; Visit Provider Psychiatry & Neurology Psychiatry
DX: F33.1 Major depressive disorder, recurrent, moderate (principal)
CPT/HCPCS: 36415; 80048; 80178

== ENCOUNTER → 2020-10-11 09:48 | Outpatient (CLI) | payer OTHER, SELFPAY ==
[2020-10-11 10:33] LABS: Lithium < 0.2 mmol/L (0.6-1.2)
[2020-10-11 10:34] LABS: BUN Creatinine Ratio 13.2 (6-22); Blood Urea Nitrogen 15 mg/dL (9-20); Estimated Glomerular Filt Rate > 60.0 mL/min (>60)
== END ==
PROVIDERS: PCP Family Medicine; Referring Provider Family Medicine; Visit Provider Family Medicine
DX: F31.63 Bipolar disorder, current episode mixed, severe, without psychotic features (principal)
CPT/HCPCS: 36415; 80178; 82565; 84520

== ENCOUNTER → 2020-11-29 09:50 | Outpatient (CLI) | payer OTHER, SELFPAY ==
[2020-11-29 10:14] LABS: COVID19 -Nasal RAPID Negative (Negative)
== END ==
PROVIDERS: PCP Family Medicine; Visit Provider Physician Assistant
DX: R52 Pain, unspecified (principal); R53.83 Other fatigue; J02.9 Acute pharyngitis, unspecified; Z20.822 Contact with and (suspected) exposure to COVID-19
CPT/HCPCS: 87635

== ENCOUNTER → 2021-01-04 08:04 | Outpatient (CLI) | payer OTHER, SELFPAY ==
[2021-01-04 09:18] LABS: Lithium 0.3 mmol/L (0.6-1.2)
[2021-01-04 09:29] LABS: Alanine Aminotransferase 18 IU/L (<50); Albumin 4.5 g/dL (3.5-5.0); Albumin Globulin Ratio 1.6 (1.0-2.8); Alkaline Phosphatase 58 U/L (38-126); Aspartate Aminotransferase 29 IU/L (17-59); BUN Creatinine Ratio 20.2 (6-22); Bilirubin Total 0.7 mg/dL (0.2-1.3); Blood Urea Nitrogen 18 mg/dL (9-20); Calcium 9.6 mg/dL (8.4-10.2); Carbon Dioxide 31 mmol/L (22-32); Chloride 103 mmol/L (98-107); Estimated Glomerular Filt Rate > 60.0 mL/min (>60); Globulin 2.9 g/dL (1.7-4.1); Glucose 92 mg/dL (70-100); HEMOLYSIS < 15 (0-50); Potassium 4.1 mmol/L (3.4-5.1); Sodium 142 mmol/L (137-145); Total Protein 7.4 g/dL (6.3-8.2)
[2021-01-04 09:53] LABS: Thyroid Stimulating Hormone 1.67 uIU/mL (0.47-4.68)
== END ==
PROVIDERS: PCP Family Medicine; Referring Provider Psychiatry & Neurology Psychiatry; Visit Provider Psychiatry & Neurology Psychiatry
DX: F31.63 Bipolar disorder, current episode mixed, severe, without psychotic features (principal)
CPT/HCPCS: 36415; 80053; 80178; 84443

== ENCOUNTER → 2021-01-05 | Outpatient (CLI) | payer OTHER, SELFPAY | PROVIDERS: PCP Family Medicine; Referring Provider Internal Medicine; Visit Provider Internal Medicine | DX: Z23 Encounter for immunization (principal) | CPT/HCPCS: 90471; 90686 ==

== ENCOUNTER → 2021-02-03 11:10 | Outpatient (CLI) | payer OTHER, SELFPAY ==
[2021-02-03] MEDS: COVID-19 VACC #3, MRNA(MOD) 50 MCG/0.25 ML VIAL IM (11:16)
== END ==
PROVIDERS: PCP Family Medicine; Visit Provider Internal Medicine
DX: Z23 Encounter for immunization (principal)
CPT/HCPCS: 0013A; 91301

== ENCOUNTER → 2021-02-27 09:35 | Outpatient (CLI) | payer OTHER, SELFPAY ==
[2021-02-27 13:11] LABS: Lithium 0.4 mmol/L (0.6-1.2)
== END ==
PROVIDERS: PCP Family Medicine; Referring Provider Psychiatry & Neurology Psychiatry; Visit Provider Psychiatry & Neurology Psychiatry
DX: F31.63 Bipolar disorder, current episode mixed, severe, without psychotic features (principal)
CPT/HCPCS: 36415; 80178

== ENCOUNTER → 2021-06-16 15:44 | Outpatient (CLI) | payer OTHER, SELFPAY ==
[2021-06-16 16:11] LABS: Alanine Aminotransferase 17 IU/L (<50); Albumin 4.6 g/dL (3.5-5.0); Albumin Globulin Ratio 1.4 (1.0-2.8); Alkaline Phosphatase 62 U/L (38-126); Aspartate Aminotransferase 26 IU/L (17-59); Bilirubin Total 0.5 mg/dL (0.2-1.3); Blood Urea Nitrogen 23 mg/dL (9-20); Calcium 9.2 mg/dL (8.4-10.2); Carbon Dioxide 27 mmol/L (22-32); Chloride 104 mmol/L (98-107); Estimated Glomerular Filt Rate > 60.0 mL/min (>60); Globulin 3.2 g/dL (1.7-4.1); Glucose 98 mg/dL (70-100); HEMOLYSIS 32 (0-50); Potassium 4.3 mmol/L (3.4-5.1); Sodium 140 mmol/L (137-145); Total Protein 7.8 g/dL (6.3-8.2)
[2021-06-16 16:26] LABS: Lithium < 0.2 mmol/L (0.6-1.2)
== END ==
PROVIDERS: PCP Family Medicine; Referring Provider Nurse Practitioner Family; Visit Provider Nurse Practitioner Family
DX: R25.1 Tremor, unspecified (principal)
CPT/HCPCS: 36415; 80053; 80178

== ENCOUNTER → 2022-02-02 12:33 | Outpatient (CLI) | payer OTHER, SELFPAY | PROVIDERS: PCP Family Medicine; Referring Provider Internal Medicine; Visit Provider Internal Medicine | DX: Z23 Encounter for immunization (principal) | CPT/HCPCS: 90471; 90686 ==

== ENCOUNTER → 2023-02-05 | Outpatient (CLI) | payer OTHER, SELFPAY | PROVIDERS: PCP Family Medicine; Referring Provider Family Medicine; Visit Provider Family Medicine | DX: Z23 Encounter for immunization (principal) | CPT/HCPCS: 90471; 90686 ==

== ENCOUNTER → 2023-02-07 07:07 | Outpatient (CLI) | payer OTHER, SELFPAY ==
[2023-02-07 08:41] LABS: HEMOLYSIS < 15 (0-50); Iron 59 ug/dL (49-181)
[2023-02-07 08:51] LABS: Add Manual Diff / Slide Review NO; Alanine Aminotransferase 18 IU/L (<50); Albumin 4.2 g/dL (3.5-5.0); Albumin Globulin Ratio 1.4 (1.0-2.8); Alkaline Phosphatase 62 U/L (38-126); Aspartate Aminotransferase 22 IU/L (17-59); BUN Creatinine Ratio 21.1 (6-22); Basophils Absolute Auto 0 /uL (0-100); Basophils Percent Auto 0.5 % (0-2); Bilirubin Total 0.8 mg/dL (0.2-1.3); Blood Urea Nitrogen 19 mg/dL (9-20); Calcium 9.7 mg/dL (8.4-10.2); Carbon Dioxide 28 mmol/L (22-32); Chloride 103 mmol/L (98-107); Cholesterol 251 mg/dL (140-199); Eosinophils Absolute Auto 300 /uL (0-450); Eosinophils Percent Auto 3.2 % (2-4); Estimated Glomerular Filt Rate > 60 mL/min (>60); Globulin 2.9 g/dL (1.7-4.1); Glucose 97 mg/dL (70-100); HDL Cholesterol 46 mg/dL (40-60); HEMOLYSIS < 15 (0-50); Hematocrit 44.9 % (41-53); Hemoglobin 15.3 g/dL (13.5-17.5); LDL Cholesterol Calculated 182 mg/dL (<100); Lymphocytes Absolute Auto 1700 /uL (1100-4500); Lymphocytes Percent Auto 20.2 % (25-40); Mean Corpuscular HGB Conc 34.1 % (30-36); Mean Corpuscular Hemoglobin 31.1 PG (26-34); Mean Corpuscular Volume 91.5 fL (80-100); Monocytes Absolute Auto 700 /uL (0-900); Monocytes Percent Auto 8.3 % (3-14); Neutrophils Absolute Auto 5600 /uL (1500-7000); Neutrophils Percent Auto 67.8 % (50-75); Platelet Count 241 X10^3/uL (150-400); Red Blood Cell Count 4.91 X10^6/uL (4.5-5.9); Sodium 139 mmol/L (137-145); Total Protein 7.1 g/dL (6.3-8.2); Triglycerides 115 mg/dL (35-150); White Blood Cell Count 8.3 X10^3/uL (4.5-11.0)
[2023-02-07 08:55] LABS: Percent Iron Saturation 24 % (20-50); Total Iron Binding Capacity 249 ug/dL (261-462); Transferrin 181 mg/dL (206-381)
[2023-02-07 09:18] LABS: TSH w/ Reflex to FT4 0.93 uIU/mL (0.47-4.68)
[2023-02-07 09:23] LABS: Ferritin 46 ng/mL (18-464); Testosterone 204 ng/dL (132-813)
[2023-02-07 09:37] LABS: Vitamin B12 453 pg/mL (239-931)
== END ==
PROVIDERS: PCP Family Medicine; Referring Provider Physician Assistant; Visit Provider Physician Assistant
DX: R53.83 Other fatigue (principal); E78.5 Hyperlipidemia, unspecified
CPT/HCPCS: 36415; 80053; 80061; 82607; 82728; 83540; 83550; 84403; 84443; 85025

== ENCOUNTER → 2023-10-18 14:03 | Outpatient (CLI) | payer OTHER, SELFPAY ==
--- NOTE | 2023-10-18 14:05 | DI.CT.S_ITS ---
PROCEDURE: CT SINUS SCREEN WO CON INDICATIONS: Chronic pansinusitis TECHNIQUE: Noncontrast 3.0 mm axial images acquired from the frontal sinuses to the mid-sella, with coronal and sagittal reformats. For radiation dose reduction, the following was used: automated exposure control, adjustment of mA and/or kV according to patient size. COMPARISON: [facility], CT, CT HEAD/BRAIN WO CON, 05/13/2018, 16:41. FINDINGS: Image quality: Excellent. Maxillary Sinuses: Moderate mucosal thickening can be seen within the inferior maxillary sinuses. There is demineralization of the superior medial leonard of the maxillary sinuses. Ethmoid Air Cells: No bony remodeling or destruction. There is minimal ethmoid air cell mucosal thickening. Sphenoid Sinuses: No bony remodeling or destruction. Minimal mucosal thickening can be seen involving the anterior aspects of the sphenoid sinuses. Frontal Sinuses: No bony remodeling or destruction. Minimal mucosal thickening can be seen within the inferior medial frontal sinuses. Ostiomeatal Complexes: The right ostiomeatal complex is occluded. The left ostiomeatal complex is constitutionally narrowed and is further narrowed by soft tissue thickening. Bilateral Katerin cells are seen. Miscellaneous: Visualized intra-orbital contents are normal. There is a right-sided genie bullosa. Mild rightward nasal septal deviation can be seen. IMPRESSION: Multifocal paranasal sinus disease can be seen, which is worst within the maxillary sinuses. The right ostiomeatal complex is occluded and the left ostiomeatal complex is highly narrowed. Bilateral Katerin cells can be seen. Dictated by: Loi Savage M.D. on 10/18/2023 at 15:55 Approved by: Loi Savage M.D. on 10/18/2023 at 15:58
== END ==
PROVIDERS: PCP Family Medicine; Referring Provider Otolaryngology; Visit Provider Otolaryngology
DX: J32.4 Chronic pansinusitis (principal); J34.89 Other specified disorders of nose and nasal sinuses; R51.9 Headache, unspecified
CPT/HCPCS: 70486

== ENCOUNTER → 2023-12-29 10:28 | Outpatient (CLI) | payer OTHER, SELFPAY ==
[2023-12-29 11:36] LABS: Influenza A - CEPHEID Flu A NEGATIVE (NEGATIVE); Influenza B - CEPHEID Flu B NEGATIVE (NEGATIVE); Respiratory Syncytial Virus Negative (Negative)
[2023-12-29 11:38] LABS: COVID-19 CEPHEID 4-PLEX PCR Negative (Negative)
== END ==
PROVIDERS: PCP Family Medicine; Visit Provider Nurse Practitioner Family
DX: R05.9 Cough, unspecified (principal)
CPT/HCPCS: 0241U

== ENCOUNTER 2024-01-16 11:26 | Emergency (ER) | payer OTHER, SELFPAY ==
[2024-01-16 11:29] VITALS: BP 149/91; PULSE 77; RESP 18; TEMP 37.1; O2SAT 98; BMI 27.3
--- NOTE | 2024-01-16 12:11 | ED_ITS ---
HPI - Male Genitourinary <Warren Mi PA-C - Last Filed: 01/16/24 13:52> General Chief complaint: Urogenital-Male Stated complaint: Might have Kidney stones, passing blood Time Seen by Provider: 01/16/24 12:10 Source: patient Mode of arrival: Ambulatory History of Present Illness HPI Narrative: This is a 38-year-old male presents emergency department due to left flank pain and reported hematuria in his urine this morning. He does state that he was mild urgency to urinate currently. States that he was history of kidney stones roughly 10 years ago and this feels somewhat similar. The pain is intermittent to his left flank. Denies any nausea, vomiting, abdominal pain, or any other concerning signs or symptoms. Related Data Home Medications Medication Instructions Recorded Confirmed Nebulizer: Home Unit 1 ea miscellaneous DIRECTED 05/13/18 01/09/24 cetirizine 10 mg tablet 10 mg PO DAILY 05/13/18 01/09/24 Previous Rx's Medication Instructions Recorded montelukast 10 mg tablet 10 mg PO DAILY #90 tabs 09/17/23 fluticasone 250 mcg-salmeterol 50 1 ea inhalation BID #180 ea 10/14/23 mcg/dose blistr powdr for inhalation benzonatate 200 mg capsule 200 mg PO BID PRN cough #28 caps 12/29/23 albuterol sulfate 90 mcg/actuation 2 puff inhalation Q4H PRN for 12/31/23 aerosol inhaler dyspnea #6.7 grams hydroxyzine HCl 25 mg tablet 25 mg PO BEDTIME #30 tabs 01/09/24 lithium carbonate 150 mg capsule 150 mg PO BEDTIME #30 caps 01/09/24 ondansetron 4 mg disintegrating 4 mg PO Q8H PRN nausea and 01/16/24 tablet vomiting #20 tabs oxycodone 5 mg capsule 5 mg PO Q6H PRN pain #20 caps 01/16/24 tamsulosin 0.4 mg capsule (Flomax) 0.4 mg PO DAILY #10 caps 01/16/24 Allergies Allergy/AdvReac Type Severity Reaction Status Date / Time buspirone AdvReac Intermediate intense Verified 01/09/24 09:12 dizziness, nausea, vomitting Review of Systems <Warren Mi PA-C - Last Filed: 01/16/24 13:52> Review of Systems Narrative: GENERAL: Denies chills, fatigue, malaise, fever, sweats. HEENT: Denies sinus pain, ear pain, sore throat, difficulty swallowing, dizziness. RESPIRATORY: Denies dyspnea, cough, wheezing, hemoptysis, sputum. CARDIOVASCULAR: Denies chest pain, palpitations, orthopnea, edema, GASTROINTESTINAL: Denies nausea, vomiting, abdominal pain, diarrhea, constipation, melena. : Reports hematuria Denies dysuria, frequency, incontinence, , urinary retention. MUSCULOSKELETAL: Reports left flank pain, denies weakness, joint pain, or bony pain SKIN: Denies rash, skin lesions, or other NEUROLOGIC: Denies weakness, headache, numbness, change in speech, confusion, seizures, incoordination. PSYCHIATRIC: No concerning psychosocial issues. 12 point review of systems is negative except for those stated above Patient History <Warren Mi PA-C - Last Filed: 01/16/24 13:52> Medical History (Updated 01/16/24 @ 13:51 by Warren Mi PA-C) Tension headache Hay fever with asthma Substance abuse (~2009) Depression (~2009) Anxiety (~2009) ADHD (~2011) Rhabdomyolysis (~2006) Acne Kidney stones (~2011) Low testosterone (~2011) Vertigo (~2009) Recurrent sinusitis (~2014) PVCs (premature ventricular contractions) (~2015) Pulmonary embolism (~07/2011) PTSD (post-traumatic stress disorder) Sleep disturbance Bronchitis Bronchitis Rhabdomyolysis Major depressive disorder, recurrent episode, moderate Anxiety PVC (premature ventricular contraction) Surgical History Anesthesia Fracture of radius and ulna (~1997) History of third molar tooth extraction (~2001) Family History Brother Age: 35 Seizures Mental health problem Manic depression Father Age: 72 Pinched nerve Mother Age: 63 Hypertension Smoker Mental health problem Diabetes mellitus Alcoholic Sister Age: 39 Cancer Depression Grandmother No problems noted. Social History Smoking Status: Former smoker alcohol intake: former substance use type: does not use Smoking Status: Former smoker alcohol intake frequency: 0-2 drinks per day Substance Use Type: marijuana Exam <Warren Mi PA-C - Last Filed: 01/16/24 13:52> Narrative Exam Narrative: GENERAL: Well-developed patient, in mild distress. HEAD: Atraumatic. Normocephalic. EYES: Pupils equal round and reactive. Extraocular motions intact. No scleral icterus. No injection or drainage. ENT: Nose without bleeding, purulent drainage. Throat without erythema, tonsillar hypertrophy or exudate. Airway patent. NECK: Trachea midline. Non tender EXTREMITIES: No edema or joint tenderness. NEURO: AOx3. SKIN: No rash or erythema of visible areas Back: No CVA tenderness to palpation Abdomen: No abdominal tenderness to palpation Initial Vital Signs Initial Vital Signs: Vital Signs Temperature 98.8 F 01/16/24 11:29 Pulse Rate 77 01/16/24 11:29 Respiratory Rate 18 01/16/24 11:29 Blood Pressure 149/91 H 01/16/24 11:29 Pulse Oximetry 98 01/16/24 11:29 Oxygen Delivery Method Room Air 01/16/24 11:29 <Yaquelin Landa MD - Last Filed: 01/16/24 18:12> Initial Vital Signs Initial Vital Signs: Vital Signs Temperature 98.8 F 01/16/24 11:29 Pulse Rate 77 01/16/24 11:29 Respiratory Rate 18 01/16/24 11:29 Blood Pressure 149/91 H 01/16/24 11:29 Pulse Oximetry 98 01/16/24 11:29 Oxygen Delivery Method Room Air 01/16/24 11:29 Course <Warren Mi PA-C - Last Filed: 01/16/24 13:52> Orders Ordered: ED Orders 01/16/24 12:18 CT kidney ureter bladder (KUB) Stat Discontinued Medications Ketorolac Tromethamine (Ketorolac 30 Mg/Ml Vial) 15 mg IM NOW ONE Stop: 01/16/24 13:47 Last Admin: 01/16/24 13:52 Dose: 15 mg Documented By: WOODROW Ondansetron HCl (Ondansetron 4 Mg/2 Ml Inj) 4 mg IV NOW PRN PRN Reason: Nausea And Vomiting Ondansetron HCl (Ondansetron 4 Mg Odt) 4 mg SL NOW PRN PRN Reason: Nausea And Vomiting Vital Signs Vital signs: Vital Signs - 8 hr 01/16/24 11:29 01/16/24 14:12 Temperature 98.8 F Pulse Rate 77 68 Respiratory Rate 18 18 Blood Pressure 149/91 H 138/91 H Pulse Oximetry 98 98 Oxygen Delivery Method Room Air Room Air <Yaquelin Landa MD - Last Filed: 01/16/24 18:12> Orders Ordered: ED Orders 01/16/24 12:18 CT kidney ureter bladder (KUB) Stat Discontinued Medications Ketorolac Tromethamine (Ketorolac 30 Mg/Ml Vial) 15 mg IM NOW ONE Stop: 01/16/24 13:47 Last Admin: 01/16/24 13:52 Dose: 15 mg Documented By: WOODROW Ondansetron HCl (Ondansetron 4 Mg/2 Ml Inj) 4 mg IV NOW PRN PRN Reason: Nausea And Vomiting Ondansetron HCl (Ondansetron 4 Mg Odt) 4 mg SL NOW PRN PRN Reason: Nausea And Vomiting Vital Signs Vital signs: Vital Signs - 8 hr 01/16/24 11:29 01/16/24 14:12 Temperature 98.8 F Pulse Rate 77 68 Respiratory Rate 18 18 Blood Pressure 149/91 H 138/91 H Pulse Oximetry 98 98 Oxygen Delivery Method Room Air Room Air MDM - Male Genitourinary <Warren Mi PA-C - Last Filed: 01/16/24 13:52> Lab Data Labs: Urine Dip Bedside Urine Glucose Negative Bedside Urine Bilirubin - Negative Bedside Urine Ketone - Negative Urine Specific [place] 1.015 Bedside Urine Occult Blood - Negative Bedside Urine pH 6.5 Bedside Urine Protein - Negative Bedside Urine Urobilinogen - Negative Bedside Urine Nitrite - Negative Bedside Urine Leukocytes - Negative Esterase Imaging Data CT scan - abdomen/pelvis: Radiologist's Impression: [place] [address] CT Scan Report Signed Patient: Jesus aClix MR#: [id number] : 1985 Acct:[id number] Age/Sex: 38 / M Date of Service: 01/16/24 Loc: ED Accession Number: [id number] Procedure: CT kidney ureter bladder (KUB) Ordering Provider: Warren Mi PA-C PROCEDURE: CT KIDNEY URETER BLADDER (KUB) INDICATIONS: L flank pain w/ hematuria TECHNIQUE: Axial sections were acquired from the lung bases to the pubic symphysis. Coronal and sagittal reformats were performed. For radiation dose reduction, the following was used: automated exposure control, adjustment of mA and/or kV according to patient size. COMPARISON: None. FINDINGS: Image quality: Diagnostic. Lower Chest: No significant findings. URINARY: Right Kidney: No stones or hydronephrosis. Right Ureter: No hydroureter. Left Kidney: No nonobstructing left-sided kidney stones are seen there is mild left-sided hydronephrosis. Left Ureter: There is an obstructing 3 mm stone seen at the left ureterovesicular junction. Mild left-sided hydroureter ureter is seen. Bladder: Normal wall thickness. No stones. ABDOMEN: Liver: No contour-deforming solid mass. Gallbladder: No radiopaque gallstones or wall thickening. Biliary ducts: No biliary dilation. Pancreas: No ductal dilation. Spleen: Size is within normal limits. Adrenal Glands: No adrenal nodules. Stomach and Bowel: Normal colonic caliber, without significant wall thickening. Colonic diverticulosis is seen, without findings of active diverticulitis. A normal appendix is noted. No dilated loops of small bowel are seen. Peritoneum: No abnormal intraperitoneal fluid. No free air. Ventral Wall: No hernia. Abdominal Nodes: No enlarged retroperitoneal or mesenteric lymph nodes. Vessels: Aorta and inferior vena cava are normal in size. PELVIS: Pelvic Organs: Unremarkable. Pelvic Nodes: Unremarkable. Miscellaneous: No inguinal hernias are seen. Bones: Unremarkable. IMPRESSION: 3 mm obstructing stone seen at the left ureterovesicular junction, with associated mild left-sided hydroureter and hydronephrosis. No nonobstructing stones are seen on either side. Additional findings: Normal appendix Diverticulosis, without active diverticulitis Dictated by: Loi Savage M.D. on 01/16/2024 at 12:21 Approved by: Loi Savage M.D. on 01/16/2024 at 12:24 MDM Narrative Medical decision making narrative: ED course: This is a 38-year-old male presents to the emergency department due to left flank pain for the last day. CT KUB was ordered which showed a 3 mm stone affecting the left side. UA showed no evidence of the and current UTI. We will treat with IM Toradol, narcotics for pain control, Zofran, Flomax. Suspect stone should pass without needing any urologic intervention. CC: Left flank pain Complicating co-morbidities: History of kidney stones Data collected from: Previous notes Medical records reviewed: Patient was last seen in the emergency department 3 years ago due to shortness of breath. History of asthma. Also has a history of anxiety depression, kidney stones in 2011, pulmonary embolism in 2011, PVCs, rhabdomyolysis in 2006, substance abuse. Eventually discharged. Differential considered, but not limited to: Kidney stone, UTI, STD Exam documented above, pertinent findings include: Reassuring exam Lab Test results independently reviewed as above. Pertinent findings: None obtained Imaging studies independently reviewed: CT showed a 3 mm stone affecting the left side Scores Used: None MIPS Elements: None Consultations: None Treatments: IM Toradol Re-evaluations: None Discussion: Discussed plan with the patient was comfortable with the plan Diagnosis: Kidney stone Disposition: see below, along with detailed discharge instructions that have been reviewed with patient as well as indications for ED re-evaluation and additional outpatient follow up <Yaquelin Landa MD - Last Filed: 01/16/24 18:12> Lab Data Labs: Urine Dip Bedside Urine Glucose Negative Bedside Urine Bilirubin - Negative Bedside Urine Ketone - Negative Urine Specific [place] 1.015 Bedside Urine Occult Blood - Negative Bedside Urine pH 6.5 Bedside Urine Protein - Negative Bedside Urine Urobilinogen - Negative Bedside Urine Nitrite - Negative Bedside Urine Leukocytes - Negative Esterase Discharge Plan Departure Patient Disposition: Home Clinical Impression: Kidney stone Instructions: DI for Kidney Stones Activity Restrictions/Additional Instructions: Thank you for coming to the [facility] Emergency Department today. As we discussed here with a 3 mm stone affecting her left side. Please continue to drink plenty of fluids as well as take the medications prescribed in the should help pass the stone. I recommend use Tylenol as needed for the pain but you may use the narcotics prescribed for any breakthrough pain. May use Zofran for nausea. The Flomax should help urinate. Please return to the emergency department if you develop any significant new or worsening pain, fevers, or any other concerning signs or symptoms. I hope you feel better soon. Please follow up with your primary care provider within a week if your symptoms continue. If you do not have a primary care provider please contact the [facility] Resource line at [phone]. They will ask some questions about your medical history and help you get set up with a provider in the community. Prescriptions: New tamsulosin [Flomax] 0.4 mg capsule 0.4 mg PO DAILY Qty: 10 0RF ondansetron 4 mg tablet,disintegrating 4 mg PO Q8H PRN (Reason: nausea and vomiting) Qty: 20 0RF oxycodone 5 mg capsule 5 mg PO Q6H PRN (Reason: pain) Qty: 20 0RF No Action benzonatate 200 mg capsule 200 mg PO BID PRN (Reason: cough) Qty: 28 0RF montelukast 10 mg tablet 10 mg PO DAILY Qty: 90 1RF fluticasone propion-salmeterol 250-50 mcg/dose blister with device 1 ea inhalation BID Qty: 180 1RF albuterol sulfate 90 mcg/actuation HFA aerosol inhaler 2 puff inhalation Q4H PRN (Reason: for dyspnea) Qty: 6.7 10RF lithium carbonate 150 mg capsule 150 mg PO BEDTIME Qty: 30 0RF hydroxyzine HCl 25 mg tablet 25 mg PO BEDTIME Qty: 30 0RF cetirizine 10 mg Tablet 10 mg PO DAILY Nebulizer: Home Unit 1 ea miscellaneous DIRECTED Referrals: Gui Butsos MD [Primary Care Provider] - Stand Alone Forms: Patient Portal/API ED Sign-out <Yaquelin Landa MD - Last Filed: 01/16/24 18:12> Cosign ED Attending Keith Attestation: I was immediately available in the department for consultation throughout this patient's visit. Yaquelin Landa MD
--- NOTE | 2024-01-16 12:18 | DI.CT.S_ITS ---
PROCEDURE: CT KIDNEY URETER BLADDER (KUB) INDICATIONS: L flank pain w/ hematuria TECHNIQUE: Axial sections were acquired from the lung bases to the pubic symphysis. Coronal and sagittal reformats were performed. For radiation dose reduction, the following was used: automated exposure control, adjustment of mA and/or kV according to patient size. COMPARISON: None. FINDINGS: Image quality: Diagnostic. Lower Chest: No significant findings. URINARY: Right Kidney: No stones or hydronephrosis. Right Ureter: No hydroureter. Left Kidney: No nonobstructing left-sided kidney stones are seen there is mild left-sided hydronephrosis. Left Ureter: There is an obstructing 3 mm stone seen at the left ureterovesicular junction. Mild left-sided hydroureter ureter is seen. Bladder: Normal wall thickness. No stones. ABDOMEN: Liver: No contour-deforming solid mass. Gallbladder: No radiopaque gallstones or wall thickening. Biliary ducts: No biliary dilation. Pancreas: No ductal dilation. Spleen: Size is within normal limits. Adrenal Glands: No adrenal nodules. Stomach and Bowel: Normal colonic caliber, without significant wall thickening. Colonic diverticulosis is seen, without findings of active diverticulitis. A normal appendix is noted. No dilated loops of small bowel are seen. Peritoneum: No abnormal intraperitoneal fluid. No free air. Ventral Wall: No hernia. Abdominal Nodes: No enlarged retroperitoneal or mesenteric lymph nodes. Vessels: Aorta and inferior vena cava are normal in size. PELVIS: Pelvic Organs: Unremarkable. Pelvic Nodes: Unremarkable. Miscellaneous: No inguinal hernias are seen. Bones: Unremarkable. IMPRESSION: 3 mm obstructing stone seen at the left ureterovesicular junction, with associated mild left-sided hydroureter and hydronephrosis. No nonobstructing stones are seen on either side. Additional findings: Normal appendix Diverticulosis, without active diverticulitis Dictated by: Loi Savage M.D. on 01/16/2024 at 12:21 Approved by: Loi Savage M.D. on 01/16/2024 at 12:24
--- NOTE | 2024-01-16 12:28 | PC.NURSE ---
Left flank pain, concerned of some blood in urine. Patient states it may be a sore muscle from working out. Patient also endorses histroy of kidney stones. Patient took two tylenol TOBACCO SAMPLER states some improvement noted Denies increase in pain upon palpation of flanks.
[2024-01-16] MEDS: KETOROLAC 30 MG/ML VIAL 15 MG IM (13:52)
[2024-01-16 14:12] VITALS: BP 138/91; PULSE 68; RESP 18; O2SAT 98
== END 2024-01-16 14:05 | disposition home or self-care (01) ==
PROVIDERS: Emergency Provider Physician Assistant Medical; PCP Family Medicine
DX: N20.0 Calculus of kidney (principal); R31.9 Hematuria, unspecified; Z87.442 Personal history of urinary calculi
CPT/HCPCS: 74176; 81003; 96372; 99284; J1885

== ENCOUNTER → 2024-01-24 18:39 | Outpatient (CLI) | payer OTHER, SELFPAY | PROVIDERS: PCP Family Medicine; Referring Provider Internal Medicine; Visit Provider Internal Medicine | DX: Z23 Encounter for immunization (principal) | CPT/HCPCS: 90471; 90656 ==

== ENCOUNTER → 2024-06-27 14:41 | Outpatient (CLI) | payer OTHER, SELFPAY ==
[2024-06-27 16:01] LABS: Influenza A - CEPHEID Flu A POSITIVE (NEGATIVE); Influenza B - CEPHEID Flu B NEGATIVE (NEGATIVE); Respiratory Syncytial Virus Negative (Negative)
[2024-06-27 16:08] LABS: COVID-19 CEPHEID 4-PLEX PCR Negative (Negative)
== END ==
PROVIDERS: PCP Family Medicine; Visit Provider Registered Nurse
DX: R05.1 Acute cough (principal)
CPT/HCPCS: 0241U

== ENCOUNTER → 2024-12-31 13:56 | Outpatient (CLI) | payer OTHER, SELFPAY ==
[2024-12-31 20:05] LABS: Influenza A - CEPHEID Flu A NEGATIVE (NEGATIVE); Influenza B - CEPHEID Flu B NEGATIVE (NEGATIVE)
[2024-12-31 20:51] LABS: COVID-19 CEPHEID 4-PLEX PCR POSITIVE (Negative)
== END ==
PROVIDERS: Family Provider Family Medicine; PCP Family Medicine; Visit Provider Physician Assistant
DX: R05.1 Acute cough (principal)
CPT/HCPCS: 87637

== ENCOUNTER → 2025-01-13 13:45 | Outpatient (CLI) | payer OTHER, SELFPAY ==
--- NOTE | 2025-01-13 13:48 | DI.RAD.S_ITS ---
PROCEDURE: XR CHEST 2V INDICATIONS: blood tinged sputum w/ cough x 3 days, recent covid infx TECHNIQUE: 2 views of the chest were acquired. COMPARISON: [facility], CR, XR CHEST 2V, 04/09/2019, 13:13. [facility], CR, XR CHEST 2V, 05/13/2018, 16:49. FINDINGS: Surgical changes and devices: None. Lungs and pleura: Lungs are clear. No pleural effusions or pneumothorax. Mediastinum: Mediastinal contours are normal. Heart size is normal. Bones and chest wall: No suspicious bony abnormalities. Soft tissues appear unremarkable. IMPRESSION: No acute cardiopulmonary abnormality is seen. Approved by: Marc Black M.D. on 01/13/2025 at 15:02
== END ==
PROVIDERS: Family Provider Family Medicine; PCP Family Medicine; Referring Provider Physician Assistant; Visit Provider Physician Assistant
DX: R04.2 Hemoptysis (principal); U07.1 COVID-19
CPT/HCPCS: 71046